=== PATIENT | female | born 1935 | race Caucasian/White ===

== ENCOUNTER → 2017-05-13 | Outpatient (CLI) | payer BC, MEDICARE ==
[2017-05-13 07:54] LABS: Calcium 9.5 mg/dL (8.4-10.2); Phosphorous 4.3 mg/dL (2.5-4.5); Potassium 4.4 mmol/L (3.5-5.1)
[2017-05-13 08:10] LABS: CH 34.3; CHCM 31.9; HCT 41.6 % (34.0-46.0); HDW 2.37; HGB 13.5 gm/dL (11.4-16.0); MCH 35.1 pg (25.0-35.0); MCHC 32.5 g/dL (31.0-37.0); Macrocytosis Moderate; Mean Platelet Volume 7.4; RBC 3.85 m/uL (3.80-5.40); RDW 13.9 % (11.5-15.5); WBC 5.5 k/uL (3.8-10.6)
[2017-05-13 08:22] LABS: Appearance,Urine Cloudy (Clear); Bacteria,Urine Rare /hpf; Bilirubin,Urine Negative (Negative); Glucose,Urine (UA) Negative (Negative); Ketones,Urine Negative (Negative); Leukocyte Esterase,Urine Large (Negative); Mucus,Urine Occasional /hpf; Nitrite,Urine Negative (Negative); Particle Count 33114; Protein,Urine Trace (Negative); Specific Gravity,Urine 1.015 (1.001-1.035); Squamous Epithelial Cell,Urine 5 /hpf (0-4); UA Billing (MACRO vs. MICRO) MICRO; Urobilinogen,Urine <2.0 mg/dL (<2.0); WBC,Urine >182 /hpf (0-5)
== END | disposition home or self-care (01) ==
LOC: LABWHC1 07:02
PROVIDERS: ATTEND Internal Medicine Nephrology
DX: N18.3 Chronic kidney disease, stage 3 (moderate) (principal)
CPT/HCPCS: 36415; 80048; 80069; 81001; 82306; 82570; 83970; 84156; 85027

== ENCOUNTER → 2017-12-15 | Outpatient (CLI) | payer MEDICARE ==
[2017-12-15 07:06] LABS: Basophils % (A) 0 %; Eosinophils # (A) 0.1 k/uL (0-0.7); Eosinophils % (A) 2 %; HCT 40.5 % (34.0-46.0); HGB 12.9 gm/dL (11.4-16.0); Hypochromasia Slight; Lymphocytes # (A) 1.1 k/uL (1.0-4.8); Lymphocytes % (A) 24 %; MCH 34.6 pg (25.0-35.0); MCV 108.3 fL (80.0-100.0); Macrocytosis Marked; Mean Platelet Volume 7.6; Monocytes # (A) 0.2 k/uL (0-1.0); Monocytes % (A) 4 %; Neutrophils # (A) 3.1 k/uL (1.3-7.7); Neutrophils % (A) 68 %; Platelet Count 222 k/uL (150-450); RBC 3.74 m/uL (3.80-5.40); RDW 13.6 % (11.5-15.5); WBC 4.6 k/uL (3.8-10.6)
[2017-12-15 07:44] LABS: Calcium 9.2 mg/dL (8.4-10.2); Potassium 4.6 mmol/L (3.5-5.1)
== END | disposition home or self-care (01) ==
LOC: LABWHC1 06:40
PROVIDERS: ATTEND Nurse Practitioner Family
DX: N18.3 Chronic kidney disease, stage 3 (moderate) (principal)
CPT/HCPCS: 36415; 80048; 85025

== ENCOUNTER → 2018-07-16 | Outpatient (CLI) | payer MEDICARE ==
[2018-07-16 08:18] LABS: Basophils % (A) 1 %; Eosinophils # (A) 0.1 k/uL (0-0.7); Eosinophils % (A) 3 %; HCT 40.4 % (34.0-46.0); HGB 13.1 gm/dL (11.4-16.0); Lymphocytes # (A) 0.8 k/uL (1.0-4.8); Lymphocytes % (A) 19 %; MCH 36.3 pg (25.0-35.0); MCHC 32.4 g/dL (31.0-37.0); MCV 112.2 fL (80.0-100.0); Macrocytosis Marked; Mean Platelet Volume 6.9; Monocytes # (A) 0.2 k/uL (0-1.0); Monocytes % (A) 6 %; Neutrophils # (A) 2.9 k/uL (1.3-7.7); Neutrophils % (A) 70 %; Platelet Count 199 k/uL (150-450); RDW 14.6 % (11.5-15.5); WBC 4.2 k/uL (3.8-10.6)
[2018-07-16 11:13] LABS: Vitamin D 25 Hydroxy 35.8 ng/mL (30.0-100.0)
[2018-07-16 11:16] LABS: Parathyroid Hormone Intact 56.3 pg/mL (14.0-72.0)
[2018-07-16 13:16] LABS: Anion Gap 5.7 mmol/L (4.00-12.00); Calcium 9.1 mg/dL (8.7-10.3); Carbon Dioxide 28.3 mmol/L (21.6-31.8); Magnesium 2.3 mg/dL (1.5-2.4); Phosphorus 3.8 mg/dL (2.4-5.1); Potassium 4.3 mmol/L (3.5-5.5)
== END | disposition home or self-care (01) ==
LOC: LABWHC1 07:19
PROVIDERS: ATTEND Nurse Practitioner Family
DX: N18.3 Chronic kidney disease, stage 3 (moderate) (principal); D63.1 Anemia in chronic kidney disease; E55.9 Vitamin D deficiency, unspecified
CPT/HCPCS: 36415; 80048; 82306; 83735; 83970; 84100; 85025

== ENCOUNTER → 2018-08-24 | Outpatient (CLI) | payer MEDICARE ==
--- NOTE | 2018-08-24 14:12 | US ---
EXAMINATION TYPE: US kidneys/renal and bladder DATE OF EXAM: 08/24/2018 COMPARISON: 03/21/2015 CLINICAL HISTORY: 83-year-old female N18.3 Chronic kidney disease stage 3. No pain TECHNIQUE: Multiple sonographic images of the kidneys and bladder are obtained. FINDINGS: EXAM MEASUREMENTS: Right Kidney: 8.3 x 3.6 x 3.6 cm Left Kidney: 8.9 x 3.5 x 4.0 cm No hydronephrosis on either side. Bladder: No gross abnormality of the distended bladder. Only the left jet is seen IMPRESSION: No hydronephrosis. Only the left ureteral jet is seen during the course of the exam.
== END ==
LOC: RADUSWWP 13:14
PROVIDERS: ATTEND Internal Medicine Nephrology
DX: N18.3 Chronic kidney disease, stage 3 (moderate) (principal)
CPT/HCPCS: 76770

== ENCOUNTER 2018-12-07 15:26 | Inpatient (IN) | payer MEDICARE ==
[2018-12-07 16:30] VITALS: BMI 25.5
[2018-12-07 16:58] LABS: Albumin 3.9 g/dL (3.5-5.0); Calcium 9.8 mg/dL (8.4-10.2); Potassium 4.1 mmol/L (3.5-5.1); Total Bilirubin 0.8 mg/dL (0.2-1.3); Total Protein 6.6 g/dL (6.3-8.2)
[2018-12-07 17:00] LABS: Basophils % (A) 1 %; Eosinophils # (A) 0.1 k/uL (0-0.7); Eosinophils % (A) 2 %; HCT 40.8 % (34.0-46.0); HGB 13.2 gm/dL (11.4-16.0); Lymphocytes # (A) 0.8 k/uL (1.0-4.8); Lymphocytes % (A) 14 %; MCH 37.5 pg (25.0-35.0); MCHC 32.4 g/dL (31.0-37.0); MCV 115.8 fL (80.0-100.0); Macrocytosis Marked; Mean Platelet Volume 7.4; Monocytes # (A) 0.4 k/uL (0-1.0); Monocytes % (A) 7 %; Neutrophils # (A) 4.1 k/uL (1.3-7.7); Neutrophils % (A) 74 %; Platelet Count 291 k/uL (150-450); RBC 3.52 m/uL (3.80-5.40); RDW 13.8 % (11.5-15.5); WBC 5.6 k/uL (3.8-10.6)
[2018-12-07] MEDS: SODIUM CHLORIDE 0.9% 1,000 ML IV SCH (17:08)
--- NOTE | 2018-12-07 17:36 | XR ---
EXAMINATION TYPE: XR chest 2V DATE OF EXAM: 12/07/2018 COMPARISON: Chest x-ray March 08, 2015 HISTORY: Dyspnea. TECHNIQUE: Frontal and lateral views of the chest are obtained. FINDINGS: There is chronic parenchymal change without suspicious focal air space opacity, pleural ef fusion, or pneumothorax seen. Lateral left basilar calcified nodule or granuloma is seen. The cardiac silhouette size remains within normal limits with atherosclerotic change in aortic knob. The osseo us structures remain demineralized. Overlying EKG leads are seen. IMPRESSION: No acute cardiopulmonary process. No significant change from prior.
[2018-12-07] MEDS ORDERED: RX INFO: IV CONTRAST WAS GIVEN 1 EACH MISC MISCELLANE PRN (20:02)
[2018-12-07] MEDS ORDERED: METOPROLOL TARTRATE 25 MG TAB PO SCH (21:00)
[2018-12-07] MEDS: HEPARIN SODIUM,PORCINE 5,000 UNIT/ML 1 ML VIAL SQ SCH (22:09)
--- NOTE | 2018-12-07 22:23 | CT ---
EXAMINATION TYPE: CT angio chest DATE OF EXAM: 12/07/2018 COMPARISON: NONE HISTORY: elevated d dimer. CT DLP: 298.2 mGycm. Automated Exposure Control for Dose Reduction was Utilized. CONTRAST: CTA scan of the thorax is performed with IV Contrast, patient injected with 80 mL of Isovue 370, pulm onary embolism protocol. MIP Images are created on CT scanner and reviewed. FINDINGS: LUNGS: There is mild chronic parenchymal change without suspicious focal consolidation or infiltrate. Some dependent atelectasis is seen in the lower lungs. No concerning parenchymal mass or nodule is i dentified bilaterally. There is no pleural effusion or pneumothorax seen bilaterally. The tracheob ronchial tree is patent. MEDIASTINUM: There is satisfactory enhancement of the pulmonary artery and its branches, there is no CT evidence for pulmonary embolism. There are no greater than 1 cm hilar or mediastinal lymph nodes. No cardiomegaly or pericardial effusion is seen. There is mild left ventricular dilatation felt pr esent. OTHER: Cholecystectomy clips are seen. Mild multilevel spurring in thoracic spine is present. Few sca ttered calcifications throughout the spleen are present products of old granulomatous disease. There is 1.5 cm splenule anterior splenic hilum axial image 127. Cortical thinning posteriorly right kidney mid pole level axial image 148 is noted. IMPRESSION: 1. No CT evidence for acute pulmonary embolism. 2. Mild chronic emphysematous change without suspicious acute pulmonary infiltrate.
[2018-12-08 00:12] VITALS: RESP 16
[2018-12-08 07:00] LABS: Basophils % (A) 0 %; Eosinophils # (A) 0.2 k/uL (0-0.7); Eosinophils % (A) 4 %; HCT 35.9 % (34.0-46.0); HGB 11.6 gm/dL (11.4-16.0); Lymphocytes # (A) 0.7 k/uL (1.0-4.8); Lymphocytes % (A) 20 %; MCH 37.6 pg (25.0-35.0); MCHC 32.3 g/dL (31.0-37.0); MCV 116.5 fL (80.0-100.0); Macrocytosis Marked; Mean Platelet Volume 7.5; Monocytes # (A) 0.3 k/uL (0-1.0); Monocytes % (A) 7 %; Neutrophils # (A) 2.4 k/uL (1.3-7.7); Neutrophils % (A) 65 %; Platelet Count 258 k/uL (150-450); RBC 3.08 m/uL (3.80-5.40); RDW 14.1 % (11.5-15.5); WBC 3.7 k/uL (3.8-10.6)
[2018-12-08 07:13] LABS: Albumin 3.1 g/dL (3.5-5.0); Calcium 8.9 mg/dL (8.4-10.2); Potassium 4.2 mmol/L (3.5-5.1); Total Bilirubin 0.7 mg/dL (0.2-1.3); Total Protein 5.5 g/dL (6.3-8.2)
[2018-12-08 07:57] VITALS: TEMP 97.1
[2018-12-08] MEDS: SODIUM CHLORIDE 0.9% 1,000 ML IV SCH (08:24)
[2018-12-08] MEDS: HEPARIN SODIUM,PORCINE 5,000 UNIT/ML 1 ML VIAL SQ SCH ×2 (08:36→15:55)
--- NOTE | 2018-12-08 09:04 | P.CRDCN ---
History of Present Illness History of present illness: This is Dr. Armas dictating a consult on this patient The patient was interviewed and examined by me IMPRESSION / ASSESSMENT: Impression presented with exertional shortness of breath on exertion, with activities of daily living Admitted with atrial fibrillation diagnosis. Waiting for the outpatient ECG to be faxed twelve-lead ECG is here shows sinus rhythm normal heart rates normal ECGs So far no evidence for myocardial injury PLAN: 2-D echo and Doppler study to assess cardiac structure and function given his symptoms of shortness of breath on exertion Watch on telemetry for any bradycardia arrhythmias Repeat troponin HPI Patient presented with tiredness fatigue and exhaustion and shortness of breath and exertion. This been going on for somewhat time did she is prescribed Levaquin about a week back for bronchitis. However this did not help her symptoms No dizziness no loss of consciousness no angina no chest discomfort just exhaustion and shortness of breath with activities of daily living Hemoglobin is normal electrolytes and normal renal function is close to normal range She does have a past history of kidney problems and is seeing nephrology for this She denies hypertension type 2 diabetes previous CA She does have macular degeneration and can't see well ROS: No fever chills or rigors, no cough, phlegm or expectoration, no nausea, vomiting or diarrhea, no hematuria, dysuria, no musculoskeletal complaints, no strokes or seizures, no skin lesions. EXAMINATION: On examination she is afebrile 97.2F pulse rate in the 80s blood pressure 126/71 mmHg Breath sounds are normal no rhonchi no crackles Heart sounds are normal no murmurs or gallops no rub Abdomen is soft nontender Extremities are warm no edema REVIEW OF LABS, ECG & MEDICAL DATA Labs are reviewed did know abnormalities noted. Renal function close to the normal range Normal TSH Normal troponin Past Medical History Past Medical History: Hypertension Additional Past Medical History / Comment(s): migraines History of Any Multi-Drug Resistant Organisms: None Reported Past Surgical History: Appendectomy, Bowel Resection, Cholecystectomy, Orthopedic Surgery Past Anesthesia/Blood Transfusion Reactions: No Reported Reaction Past Psychological History: No Psychological Hx Reported Smoking Status: Never smoker Past Alcohol Use History: None Reported Past Drug Use History: None Reported Medications and Allergies Home Medications Medication Instructions Recorded Confirmed Type Cholecalciferol [Vitamin D3] 1,000 unit PO DAILY 12/07/18 12/07/18 History Vit C/E/Zn/Coppr/Lutein/Zeaxan 1 cap PO BID 12/07/18 12/07/18 History [Preservision Areds 2 Softgel] Allergies Allergy/AdvReac Type Severity Reaction Status Date / Time codeine AdvReac Vomiting Verified 12/07/18 19:13 Physical Exam Vitals: Vital Signs Temp Pulse Resp BP Pulse Ox 12/08/18 07:54 97.1 F L 86 16 126/71 96 12/08/18 05:31 97.6 F 74 16 134/70 94 L 12/07/18 23:30 98.1 F 78 16 143/78 95 12/07/18 20:07 97.8 F 90 18 136/75 98 12/07/18 17:10 97.2 F L 104 H 16 113/65 97 Intake and Output 12/07/18 12/08/18 12/08/18 22:59 06:59 14:59 Intake Total 180 315 Balance 180 315 Intake: Intake, IV Titration 75 Amount Sodium Chloride 0.9% 1, 75 000 ml @ 75 mls/hr IV . [id number] [facility] Rx#:[id number] Oral 180 240 Other: # Voids 2 Weight 61.4 kg 60.3 kg Results 12/08/18 06:05 12/08/18 06:05 Cardiac Enzymes 12/07/18 12/07/18 12/08/18 Range/Units 16:21 16:31 06:05 AST 18 15 (14-36) U/L Troponin I <0.012 (0.000-0.034) ng/mL CBC 12/07/18 12/08/18 Range/Units 16:31 06:05 WBC 5.6 3.7 L (3.8-10.6) k/uL RBC 3.52 L 3.08 L (3.80-5.40) m/uL Hgb 13.2 11.6 (11.4-16.0) gm/dL Hct 40.8 35.9 (34.0-46.0) % Plt Count 291 258 (150-450) k/uL Comprehensive Metabolic Panel 12/07/18 12/08/18 Range/Units 16:31 06:05 Sodium 136 L 137 (137-145) mmol/L Potassium 4.1 4.2 (3.5-5.1) mmol/L Chloride 99 105 (98-107) mmol/L Carbon Dioxide 25 26 (22-30) mmol/L BUN 17 14 (7-17) mg/dL Creatinine 1.11 H 0.96 (0.52-1.04) mg/dL Glucose 93 81 (74-99) mg/dL Calcium 9.8 8.9 (8.4-10.2) mg/dL AST 18 15 (14-36) U/L ALT 21 23 (9-52) U/L Alkaline Phosphatase 81 64 (38-126) U/L Total Protein 6.6 5.5 L (6.3-8.2) g/dL Albumin 3.9 3.1 L (3.5-5.0) g/dL Current Medications Generic Name Dose Route Start Last Admin Trade Name Freq PRN Reason Stop Dose Admin Heparin Sodium (Porcine) 5,000 unit 12/08/18 00:00 12/08/18 08:36 Heparin SQ 5,000 unit Q8HR ORIANA Administration Miscellaneous Information 1 each 12/07/18 20:02 Rx Info: Iv Contrast Was Given MISCELLANE 12/09/18 20:03 DAILY PRN Per Protocol Intake and Output 12/07/18 12/08/18 12/08/18 22:59 06:59 14:59 Intake Total 180 315 Balance 180 315 Intake: Intake, IV Titration 75 Amount Sodium Chloride 0.9% 1, 75 000 ml @ 75 mls/hr IV . [id number] [facility] Rx#:[id number] Oral 180 240 Other: # Voids 2 Weight 61.4 kg 60.3 kg 12/08/18 06:05 12/08/18 06:05
[2018-12-08 12:31] VITALS: BP 141/65; PULSE 76
--- NOTE | 2018-12-08 13:01 | ECHOF ---
Referral Reason:atrial fibrilation MEASUREMENTS -------- HEIGHT: 154.9 cm WEIGHT: 59.9 kg BP: RVIDd: 2.5 cm (< 3.3) IVSd: 1.2 cm (0.6 - 1.1) LVIDd: 3.6 cm (3.9 - 5.3) LVPWd: 1.3 cm (0.6 - 1.1) IVSs: 1.4 cm LVIDs: 2.5 cm LVPWs: 1.7 cm LAESV Index (A-L): 19.53 ml/m Ao Diam: 3.1 cm (2.0 - 3.7) AV Cusp: 1.9 cm (1.5 - 2.6) LA Diam: 2.5 cm (2.7 - 3.8) MV EXCURSION: 13.189 mm (> 18.000) MV EF SLOPE: 50 mm/s (70 - 150) EPSS: 0.7 cm MV E Huy: 1.03 m/s MV DecT: 114 ms MV A Huy: 1.23 m/s MV E/A Ratio: 0.84 AR PHT: 295 ms RAP: 5.00 mmHg RVSP: 31.73 mmHg FINDINGS -------- Atrial fibrillation. This was a technically good study. The left ventricular size is normal. There is mild concentric left ventricular hypertrophy. Overa ll left ventricular systolic function is normal with, an EF between 55 - 60 %. The right ventricle is normal in size. Normal LA size by volume 22+/-6 ml/m2. The right atrial size is normal. Aortic valve is trileaflet and is mildly thickened. There is oxjbamho-kg-zahrqr aortic regurgitatio n. The mitral valve leaflets are mildly thickened. Mild mitral annular calcification present. Severe mitral regurgitation is present. Mild tricuspid regurgitation present. The right ventricular systolic pressure, as measured by Doppl er, is 31.73mmHg. Pulmonic valve appears structurally normal. The aortic root size is normal. Normal inferior vena cava with normal inspiratory collapse consistent with estimated right atrial pre ssure of 5 mmHg. There is no pericardial effusion. CONCLUSIONS -------- 1. Atrial fibrillation. 2. This was a technically good study. 3. The left ventricular size is normal. 4. There is mild concentric left ventricular hypertrophy. 5. Overall left ventricular systolic function is normal with, an EF between 55 - 60 %. 6. The right ventricle is normal in size. 7. Normal LA size by volume 22+/-6 ml/m2. 8. The right atrial size is normal. 9. Aortic valve is trileaflet and is mildly thickened. 10. There is mbiioryj-si-mwhpht aortic regurgitation. 11. The mitral valve leaflets are mildly thickened. 12. Mild mitral annular calcification present. 13. Severe mitral regurgitation is present. 14. Mild tricuspid regurgitation present. 15. The right ventricular systolic pressure, as measured by Doppler, is 31.73mmHg. 16. Pulmonic valve appears structurally normal. 17. The aortic root size is normal. 18. Normal inferior vena cava with normal inspiratory collapse consistent with estimated right atrial pressure of 5 mmHg. 19. There is no pericardial effusion. MACARONI PRESS OPERATOR: Helena Weeks RDCS
--- NOTE | 2018-12-08 17:28 | HP ---
HISTORY AND PHYSICAL CHIEF COMPLAINT: 83-year-old white female admitted to the hospital with acute onset atrial fibrillation with dyspnea, with exertion, lightheadedness and dizziness with minimal exertion. She was admitted today. Echocardiogram showed atrial fibrillation, although she was intermittent. She was in sinus rhythm for a lot of times on the monitor. She also was found to have moderate to severe aortic regurgitation, which could be contributing to her lightheadedness and dizziness. She has some tachycardia in the high 90s where Atenolol 25 b.i.d. is being ordered. She has paroxysmal atrial fibrillation, rapid ventricular response and moderate to severe aortic regurgitation. REVIEW OF SYMPTOMS: 14-point review of systems negative except for mentioned in HPI. HOME MEDICATIONS: Reviewed. ALLERGIES: TO CODEINE. PHYSICAL EXAM: Temperature 97 to 98, blood pressure 130s to 140 over 70s to 80s, pulse is 70s to 90s. Respiratory 16 to 18, O2 94-98 on room air. Cardiovascular S1, S2. Tachycardic, currently in sinus rhythm. Lungs are clear. GI soft. Hematology: Negative Homans. Psych: Fair mood and affect. ASSESSMENT: Paroxysmal atrial fibrillation, moderate to severe aortic regurgitation contributing to symptoms of tachycardia. Beta nita will be ordered 25 b.i.d. A copy of the echocardiogram was given to the patient. She will follow up as an outpatient with possible BRAULIO. MMODL / IJN: [id number] /
== END 2018-12-08 17:39 | disposition home or self-care (01) | DRG 310 ==
LOC: 3SCARD 16:07
PROVIDERS: ADMIT Family Medicine; ATTEND Family Medicine
DX: I48.0 Paroxysmal atrial fibrillation (principal); I35.1 Nonrheumatic aortic (valve) insufficiency; I10 Essential (primary) hypertension; Z90.49 Acquired absence of other specified parts of digestive tract; Z88.5 Allergy status to narcotic agent
CPT/HCPCS: 71046; 71275; 80053; 84443; 84484; 85025; 85379; 93306

== ENCOUNTER → 2019-03-04 | Outpatient (CLI) | payer MEDICARE ==
[2019-03-04 07:58] LABS: Basophils % (A) 1 %; Eosinophils # (A) 0.2 k/uL (0-0.7); Eosinophils % (A) 4 %; HCT 37.4 % (34.0-46.0); HGB 11.6 gm/dL (11.4-16.0); Lymphocytes # (A) 0.9 k/uL (1.0-4.8); Lymphocytes % (A) 23 %; MCH 34.6 pg (25.0-35.0); MCHC 31.1 g/dL (31.0-37.0); MCV 111.4 fL (80.0-100.0); Macrocytosis Marked; Mean Platelet Volume 7.5; Monocytes # (A) 0.3 k/uL (0-1.0); Monocytes % (A) 8 %; Neutrophils # (A) 2.5 k/uL (1.3-7.7); Neutrophils % (A) 62 %; Platelet Count 221 k/uL (150-450); RBC 3.36 m/uL (3.80-5.40); RDW 14.5 % (11.5-15.5)
[2019-03-04 08:00] LABS: Appearance,Urine Cloudy (Clear); Bacteria,Urine Few /hpf; Bilirubin,Urine Negative (Negative); Blood,Urine Negative (Negative); Color,Urine Yellow; Glucose,Urine (UA) Negative (Negative); Ketones,Urine Negative (Negative); Leukocyte Esterase,Urine Large (Negative); Mucus,Urine Rare /hpf; Nitrite,Urine Negative (Negative); Protein,Urine Negative (Negative); RBC,Urine 1 /hpf (0-5); Specific Gravity,Urine 1.009 (1.001-1.035); Urobilinogen,Urine <2.0 mg/dL (<2.0); WBC,Urine 89 /hpf (0-5)
[2019-03-04 09:02] LABS: Polychromasia Present
[2019-03-04 11:54] LABS: Iron Saturation 15.41 (12.00-45.00)
[2019-03-04 12:03] LABS: Vitamin D 25 Hydroxy 46.9 ng/mL (30.0-100.0)
[2019-03-04 14:18] LABS: African American GFR (CKD) 48.4 (60.0-200.0); Albumin 3.9 g/dL (3.80-4.90); Anion Gap 6.2 mmol/L (4.00-12.00); BUN/Creat Ratio 10.83 Ratio (12.00-20.00); Calcium 9.1 mg/dL (8.7-10.3); Carbon Dioxide 28.8 mmol/L (21.6-31.8); Potassium 4.3 mmol/L (3.5-5.5)
[2019-03-04 14:38] LABS: Magnesium 2.2 mg/dL (1.5-2.4); Phosphorus 4.1 mg/dL (2.4-5.1)
[2019-03-04 18:07] LABS: Creatinine,Urine Random 65.2 mg/dL
== END | disposition home or self-care (01) ==
LOC: LABWHC1 06:57
PROVIDERS: ATTEND Internal Medicine Nephrology
DX: N18.3 Chronic kidney disease, stage 3 (moderate) (principal); D63.1 Anemia in chronic kidney disease; R80.9 Proteinuria, unspecified; M10.9 Gout, unspecified; N39.0 Urinary tract infection, site not specified; E55.9 Vitamin D deficiency, unspecified
CPT/HCPCS: 36415; 80048; 81001; 82040; 82306; 82570; 82728; 83540; 83550; 83735; 83970; 84100; 84156; 84550; 85025

== ENCOUNTER → 2019-03-12 | Outpatient (CLI) | payer MEDICARE ==
--- NOTE | 2019-03-12 14:28 | ECHOF ---
Referral Reason:R94.31 abnormal EKG MEASUREMENTS -------- HEIGHT: 157.5 cm WEIGHT: 61.7 kg BP: 175/74 IVSd: 1.0 cm (0.6 - 1.1) LVIDd: 4.6 cm (3.9 - 5.3) LVPWd: 1.0 cm (0.6 - 1.1) IVSs: 1.5 cm LVIDs: 2.9 cm LVPWs: 1.3 cm RVIDd: 3.5 cm (< 3.3) LAESV Index (A-L): 23.41 ml/m Ao Diam: 2.9 cm (2.0 - 3.7) LA Diam: 3.2 cm (2.7 - 3.8) AV Cusp: 1.6 cm (1.5 - 2.6) EPSS: 0.9 cm MV E Huy: 0.98 m/s MV DecT: 178 ms MV A Huy: 0.88 m/s MV E/A Ratio: 1.11 AR PHT: 512 ms RAP: 5.00 mmHg RVSP: 29.49 mmHg MV EF SLOPE: 75.23 mm/s (70 - 150) MV EXCURSION: 11.11 mm (> 18.000) FINDINGS -------- Sinus rhythm. This was a technically good study. The left ventricular size is normal. Left ventricular wall thickness is normal. There is normal g lobal left ventricular contractility. Overall left ventricular systolic function is normal with, an EF between 60 - 65 %. The right ventricle is normal in size. Normal LA size by volume 22+/-6 ml/m2. The right atrial size is normal. Interatrial and interventricular septum intact. The aortic valve is trileaflet and appears structurally normal. There is zzmvhvta-xz-uqlwdw aortic regurgitation. There is no evidence of aortic stenosis. The mitral valve is normal. Mild mitral annular calcification present. Moderate mitral regurgitat ion is present. Mild tricuspid regurgitation present. There is no evidence of pulmonary hypertension. The right v entricular systolic pressure, as measured by Doppler, is 29.49mmHg. There is no pulmonic regurgitation present. The aortic root size is normal. Normal inferior vena cava with normal inspiratory collapse consistent with estimated right atrial pre ssure of 5 mmHg. There is no pericardial effusion. CONCLUSIONS -------- 1. Sinus rhythm. 2. This was a technically good study. 3. The left ventricular size is normal. 4. Left ventricular wall thickness is normal. 5. There is normal global left ventricular contractility. 6. Overall left ventricular systolic function is normal with, an EF between 60 - 65 %. 7. The right ventricle is normal in size. 8. Normal LA size by volume 22+/-6 ml/m2. 9. The right atrial size is normal. 10. Interatrial and interventricular septum intact. 11. The aortic valve is trileaflet and appears structurally normal. 12. There is lqgvcqju-kg-woawdw aortic regurgitation. 13. There is no evidence of aortic stenosis. 14. The mitral valve is normal. 15. Mild mitral annular calcification present. 16. Moderate mitral regurgitation is present. 17. There is no evidence of pulmonary hypertension. 18. The right ventricular systolic pressure, as measured by Doppler, is 29.49mmHg. 19. There is no pulmonic regurgitation present. 20. The aortic root size is normal. 21. Normal inferior vena cava with normal inspiratory collapse consistent with estimated right atrial pressure of 5 mmHg. 22. There is no pericardial effusion. MASH TUB COOKER: Vandana Mahajan RDCS
== END | disposition home or self-care (01) ==
LOC: RADECHMAIN 11:26
PROVIDERS: ATTEND Family Medicine
DX: I08.0 Rheumatic disorders of both mitral and aortic valves (principal)
CPT/HCPCS: 93306

== ENCOUNTER → 2019-07-27 | Outpatient (CLI) | payer MEDICARE ==
[2019-07-27 08:46] LABS: Basophils % (A) 0 %; Eosinophils # (A) 0.1 k/uL (0-0.7); Eosinophils % (A) 1 %; HCT 37.5 % (34.0-46.0); HGB 12.1 gm/dL (11.4-16.0); Lymphocytes # (A) 0.3 k/uL (1.0-4.8); Lymphocytes % (A) 7 %; MCH 32.5 pg (25.0-35.0); MCHC 32.2 g/dL (31.0-37.0); MCV 100.9 fL (80.0-100.0); Mean Platelet Volume 6.8; Monocytes # (A) 0.3 k/uL (0-1.0); Monocytes % (A) 7 %; Neutrophils # (A) 3.7 k/uL (1.3-7.7); Neutrophils % (A) 83 %; Platelet Count 204 k/uL (150-450); RBC 3.72 m/uL (3.80-5.40); WBC 4.5 k/uL (3.8-10.6)
[2019-07-27 15:48] LABS: African American GFR (CKD) 53.4 (60.0-200.0); Albumin 3.9 g/dL (3.80-4.90); Albumin/Globulin Ratio 2.44 (1.60-3.17); Anion Gap 8.2 mmol/L (4.00-12.00); BUN/Creat Ratio 14.55 Ratio (12.00-20.00); Calcium 8.7 mg/dL (8.7-10.3); Carbon Dioxide 26.8 mmol/L (21.6-31.8); Globulin 1.6 g/dL (1.6-3.3); Non-African American GFR(CKD) 46.1 (60.0-200.0); Potassium 4.3 mmol/L (3.5-5.5); Total Bilirubin 0.7 mg/dL (0.3-1.2); Total Protein 5.5 g/dL (6.2-8.2)
[2019-07-27 15:57] LABS: T4, Free (Free Thyroxine) 1.2 ng/dL (0.80-1.80)
[2019-07-27 16:38] LABS: Hemoglobin A1C 4.6 % (4.0-6.0)
== END | disposition home or self-care (01) ==
LOC: LABWHC1 07:31
PROVIDERS: ATTEND Family Medicine
DX: I11.0 Hypertensive heart disease with heart failure (principal); I50.9 Heart failure, unspecified
CPT/HCPCS: 36415; 80053; 82306; 83036; 83540; 83880; 84439; 84443; 85025

== ENCOUNTER → 2019-09-30 | Outpatient (CLI) | payer MEDICARE ==
[2019-09-30 08:04] LABS: Appearance,Urine Cloudy (Clear); Bacteria,Urine Few /hpf; Bilirubin,Urine Negative (Negative); Blood,Urine Negative (Negative); Color,Urine Yellow; Glucose,Urine (UA) Negative (Negative); Ketones,Urine Negative (Negative); Leukocyte Esterase,Urine Large (Negative); Nitrite,Urine Negative (Negative); PH, Urine 6.5 (5.0-8.0); Protein,Urine Negative (Negative); Specific Gravity,Urine 1.008 (1.001-1.035); Squamous Epithelial Cell,Urine 4 /hpf (0-4); Urobilinogen,Urine <2.0 mg/dL (<2.0); WBC,Urine 64 /hpf (0-5)
[2019-09-30 08:12] LABS: Basophils % (A) 1 %; Eosinophils % (A) 1 %; HCT 36.8 % (34.0-46.0); HGB 11.8 gm/dL (11.4-16.0); Lymphocytes # (A) 0.3 k/uL (1.0-4.8); Lymphocytes % (A) 10 %; MCH 32.5 pg (25.0-35.0); MCV 101.6 fL (80.0-100.0); Mean Platelet Volume 7.8; Monocytes # (A) 0.2 k/uL (0-1.0); Monocytes % (A) 8 %; Neutrophils % (A) 77 %; Platelet Count 203 k/uL (150-450); RBC 3.63 m/uL (3.80-5.40); RDW 12.2 % (11.5-15.5); WBC 2.5 k/uL (3.8-10.6)
[2019-09-30 09:38] LABS: Protein/Creatinine Ratio,Urine 0.3
[2019-09-30 13:21] LABS: % Iron Saturation 28.69 (12.00-45.00); African American GFR (CKD) 53.4 (60.0-200.0); Albumin 3.9 g/dL (3.80-4.90); BUN/Creat Ratio 14.55 Ratio (12.00-20.00); Magnesium 2.6 mg/dL (1.5-2.4); Non-African American GFR(CKD) 46.1 (60.0-200.0); Phosphorus 4.2 mg/dL (2.4-5.1); Potassium 4.2 mmol/L (3.5-5.5); Uric Acid 3.5 mg/dL (2.9-7.7)
[2019-09-30 13:29] LABS: Ferritin 108.3 ng/mL (10.0-291.0)
== END | disposition home or self-care (01) ==
LOC: LABWHC1 07:16
PROVIDERS: ATTEND Internal Medicine Nephrology
DX: E55.9 Vitamin D deficiency, unspecified (principal); M10.9 Gout, unspecified; D63.1 Anemia in chronic kidney disease; N18.3 Chronic kidney disease, stage 3 (moderate)
CPT/HCPCS: 36415; 80048; 81001; 82040; 82306; 82570; 82728; 83540; 83550; 83735; 83970; 84100; 84156; 84550; 85025

== ENCOUNTER 2020-02-07 14:47 | Emergency (ER) | payer MEDICARE ==
[2020-02-07 15:09] VITALS: RESP 18
[2020-02-07 15:52] LABS: Basophils % (A) 1 %; Eosinophils # (A) 0.1 k/uL (0-0.7); Eosinophils % (A) 1 %; HCT 36.9 % (34.0-46.0); HGB 11.8 gm/dL (11.4-16.0); Lymphocytes # (A) 0.3 k/uL (1.0-4.8); Lymphocytes % (A) 7 %; MCH 31.8 pg (25.0-35.0); MCHC 31.9 g/dL (31.0-37.0); MCV 99.8 fL (80.0-100.0); Mean Platelet Volume 7.5; Monocytes # (A) 0.3 k/uL (0-1.0); Monocytes % (A) 7 %; Neutrophils # (A) 3.4 k/uL (1.3-7.7); Neutrophils % (A) 81 %; Platelet Count 226 k/uL (150-450); RDW 12.5 % (11.5-15.5); WBC 4.2 k/uL (3.8-10.6)
[2020-02-07 16:13] LABS: Albumin 4.1 g/dL (3.5-5.0); Calcium 9.3 mg/dL (8.4-10.2); Potassium 4.2 mmol/L (3.5-5.1); Total Bilirubin 0.9 mg/dL (0.2-1.3); Total Protein 6.6 g/dL (6.3-8.2)
[2020-02-07 16:18] LABS: Partial Thromboplastin Time 25.2 sec (22.0-30.0); Prothrombin Time 10.1 sec (9.0-12.0)
--- NOTE | 2020-02-07 16:37 | CT ---
EXAMINATION TYPE: CT brain cspine wo con DATE OF EXAM: 02/07/2020 COMPARISON: CT brain June 22, 2015. HISTORY: Fall with posterior head pain and neck pain. CT DLP: 1204.1 mGycm. Automated Exposure Control for Dose Reduction was Utilized. TECHNIQUE: CT scan of the head and cervical spine are performed without contrast. FINDINGS: There is no acute intracranial hemorrhage or midline shift identified. Persistent ventric ular sulcal prominence. Persistent areas of low-attenuation in the deep and periventricular white mat ter. Scleral calcification right globe is present. Visualized paranasal sinuses are clear. The calvar ium is intact. Cervical spine is visualized in its entirety from C1 through upper thoracic levels and demonstrates s traightened alignment without evidence of acute fracture or dislocation. There is slight grade 1 ante rolisthesis C2 on C3 with more prominent grade 1 anterolisthesis C4 on C5 and retrolisthesis C5 on C6 . Prevertebral soft tissue appears within normal limits. The C1-C2 articulation is within normal lima its on the coronal images. Moderate disc space narrowing and anterior spurring C5-C6 level. Posterio r spur disc complex effacing the anterior thecal sac at this level. Review of axial images shows mult ilevel uncovertebral facet degenerative changes contributing to multilevel bilateral neural foraminal narrowing. Thyroid gland is within normal limits. Lung apices show no pneumothorax. IMPRESSION: 1. There is no acute fracture or dislocation evident in the cervical spine. 2. No acute intracranial hemorrhage or midline shift is seen.
--- NOTE | 2020-02-07 16:48 | XR ---
EXAMINATION TYPE: XR shoulder complete RT DATE OF EXAM: 02/07/2020 CLINICAL HISTORY: Pain after fall injury. TECHNIQUE: Three views of the right shoulder are obtained. COMPARISON: None. FINDINGS: Demineralization is present. There is no acute fracture/dislocation evident in the right sh oulder. Mild to moderate narrowing and mild spurring acromioclavicular joint. Some prominence at the surgical neck minimal atelectatic product of old healed fracture. The visualized ribs are intact and unremarkable. IMPRESSION: There is no acute fracture or dislocation in right shoulder.
--- NOTE | 2020-02-07 16:49 | XR ---
EXAMINATION TYPE: XR chest 2V DATE OF EXAM: 02/07/2020 COMPARISON: Chest x-ray CTA chest from December 07, 2018 HISTORY: Fall injury with chest pain TECHNIQUE: Frontal and lateral views of the chest are obtained. FINDINGS: There is and chronic parenchymal changes bilaterally without suspicious new focal air spac e opacity, pleural effusion, or pneumothorax seen. The cardiac silhouette size remains within normal limits with atherosclerotic change aortic knob. The osseous structures are intact. Cholecystectomy clips are redemonstrated. IMPRESSION: Chronic changes without acute pulmonary process.
--- NOTE | 2020-02-07 17:32 | ED ---
Fall HPI <RanjithLake - Last Filed: 02/07/20 17:42> - General Source: patient, EMS Mode of arrival: EMS <Dave Marshall - Last Filed: 02/07/20 17:50> - General Chief Complaint: Fall Stated Complaint: smycope/head lac Time Seen by Provider: 02/07/20 15:37 - History of Present Illness Initial Comments: Patient states she is an 84-year-old female presenting to emergency Department with a chief complaint of a fall. Patient reports she was on her deck when she stood up and was going to the house to nut picker the phone. Patient reports she said muscle lightheaded and fell on the ground. States when she woke up, she knows her was attempting to pick her up. Patient also reports a headache in the parietal region. With some bleeding from region. Patient denies any light headedness, dizziness, nausea vomiting. She does report tenderness along the anterior aspect of the right shoulder but does have full range of motion. Patient denies any other discomfort. Patient is not on blood thinners. Denies any visual changes, shortness of breath, chest pain. (Dave Marshall) - Related Data Home Medications Medication Instructions Recorded Confirmed Cholecalciferol [Vitamin D3] 1,000 unit PO DAILY 12/07/18 12/07/18 Vit C/E/Zn/Coppr/Lutein/Zeaxan 1 cap PO BID 12/07/18 12/07/18 [Preservision Areds 2 Softgel] Previous Rx's Medication Instructions Recorded Aspirin 81 mg PO DAILY #30 chewable 12/08/18 Atenolol 25 mg PO Q12HR #60 tablet 12/08/18 Allergies Allergy/AdvReac Type Severity Reaction Status Date / Time codeine AdvReac Vomiting Verified 02/07/20 15:09 Review of Systems ROS Other: All systems not noted in ROS Statement are negative. <[place] - Last Filed: 02/07/20 17:42> ROS Other: All systems not noted in ROS Statement are negative. <Dave Marshall - Last Filed: 02/07/20 17:50> ROS Statement: Those systems with pertinent positive or pertinent negative responses have been documented in the HPI. Past Medical History Past Medical History: Atrial Fibrillation, Hypertension Additional Past Medical History / Comment(s): migraines, "leaking heart valves." History of Any Multi-Drug Resistant Organisms: None Reported Past Surgical History: Appendectomy, Bowel Resection, Cholecystectomy, Orthopedic Surgery Past Anesthesia/Blood Transfusion Reactions: No Reported Reaction Past Psychological History: No Psychological Hx Reported Smoking Status: Never smoker Past Alcohol Use History: None Reported, Rare Past Drug Use History: None Reported <Dave Marshall - Last Filed: 02/07/20 17:50> General Exam Limitations: no limitations General appearance: alert, in no apparent distress Head exam: Present: normocephalic, normal inspection. Absent: atraumatic (Laceration measuring approximately 1.5 cm in the parietal region. not active bleeding at this time.), other (Negative Stacy sign, negative hemotympanum, negative raccoon eyes.) Eye exam: Present: normal appearance, PERRL, EOMI ENT exam: Present: normal exam, normal oropharynx, mucous membranes moist Neck exam: Present: normal inspection, full ROM Respiratory exam: Present: normal lung sounds bilaterally Cardiovascular Exam: Present: regular rate, normal rhythm, normal heart sounds Extremities exam: Present: normal inspection, full ROM, tenderness (Tenderness along the anterior aspect of her right shoulder.), normal capillary refill, other (+2 ulnar and radial pulses bilaterally. +2 dorsalis pedis and posterior tibialis bilaterally.) Back exam: Present: normal inspection, full ROM. Absent: tenderness Neurological exam: Present: alert, oriented X3 Psychiatric exam: Present: normal affect, normal mood Skin exam: Present: warm, dry, intact, normal color <Dave Marshall - Last Filed: 02/07/20 17:50> Course <[place] - Last Filed: 02/07/20 17:42> Vital Signs 02/07/20 02/07/20 14:59 17:41 Temperature 96.8 F L 97.3 F L Pulse Rate 93 78 Respiratory 18 18 Rate Blood Pressure 159/72 145/68 O2 Sat by Pulse 98 98 Oximetry - Reevaluation(s) Reevaluation #1: 02/07/20 17:42 PA supervision: I did personally evaluate this patient case. He presented after a brief syncopal episode after getting up too fast she states. She did fall the floor CAT scans negative he did have ugo in the scalp laceration. She remains awake alert oriented 3 with a Krishna Coma Scale of 15 she'll be discharged the family is in agreement. Return parameters explained. ([place] Kasper) Medical Decision Making - Lab Data Result diagrams: 02/07/20 15:34 02/07/20 15:34 <[place] - Last Filed: 02/07/20 17:42> - Lab Data Result diagrams: 02/07/20 15:34 02/07/20 15:34 <Dave Marshall - Last Filed: 02/07/20 17:50> - Medical Decision Making Patient is 84-year-old female presenting to emergency Department with a chief complaint of a fall. It appears the patient got up too quick after sitting down for prolonged periods of time and had a possible loss of consciousness. According to her , the patient drinks large amounts of coffee daily. CBC does indicate signs of dehydration with elevated BUN and creatinine. On exam she did have a 1.57 with a laceration on the parietal aspect of the scalp. Patient had a CT of the brain and C-spine which was negative. Laceration was repaired with 3 ugo. Patient vised to return in 14 days for staple removal. EKG shows sinus rhythm with PAC. Patient advised to take her time when going from a laying, to sitting, to standing position. Dr. Kasper also examined the patient and is in agreement with the treatment plan. Family feels confident with the discharge and they are in agreement with the treatment plan. Return parameters total discussed, family is understanding and agreeable. Case discussed with physician (Dave Marshall) - Lab Data Lab Results 02/07/20 02/07/20 02/07/20 Range/Units 15:34 15:34 15:34 WBC 4.2 (3.8-10.6) k/uL RBC 3.70 L (3.80-5.40) m/uL Hgb 11.8 (11.4-16.0) gm/dL Hct 36.9 (34.0-46.0) % MCV 99.8 (80.0-100.0) fL MCH 31.8 (25.0-35.0) pg MCHC 31.9 (31.0-37.0) g/dL RDW 12.5 (11.5-15.5) % Plt Count 226 (150-450) k/uL Neutrophils % 81 % Lymphocytes % 7 % Monocytes % 7 % Eosinophils % 1 % Basophils % 1 % Neutrophils # 3.4 (1.3-7.7) k/uL Lymphocytes # 0.3 L (1.0-4.8) k/uL Monocytes # 0.3 (0-1.0) k/uL Eosinophils # 0.1 (0-0.7) k/uL Basophils # 0.0 (0-0.2) k/uL PT 10.1 (9.0-12.0) sec INR 1.0 (<1.2) APTT 25.2 (22.0-30.0) sec Sodium 128 L (137-145) mmol/L Potassium 4.2 (3.5-5.1) mmol/L Chloride 96 L (98-107) mmol/L Carbon Dioxide 21 L (22-30) mmol/L Anion Gap 11 mmol/L BUN 20 H (7-17) mg/dL Creatinine 1.13 H (0.52-1.04) mg/dL Est GFR (CKD-EPI)AfAm 52 (>60 ml/min/1.73 sqM) Est GFR (CKD-EPI)NonAf 45 (>60 ml/min/1.73 sqM) Glucose 88 (74-99) mg/dL Calcium 9.3 (8.4-10.2) mg/dL Total Bilirubin 0.9 (0.2-1.3) mg/dL AST 20 (14-36) U/L ALT 10 (4-34) U/L Alkaline Phosphatase 93 (38-126) U/L Troponin I (0.000-0.034) ng/mL Total Protein 6.6 (6.3-8.2) g/dL Albumin 4.1 (3.5-5.0) g/dL 02/07/20 Range/Units 15:34 WBC (3.8-10.6) k/uL RBC (3.80-5.40) m/uL Hgb (11.4-16.0) gm/dL Hct (34.0-46.0) % MCV (80.0-100.0) fL MCH (25.0-35.0) pg MCHC (31.0-37.0) g/dL RDW (11.5-15.5) % Plt Count (150-450) k/uL Neutrophils % % Lymphocytes % % Monocytes % % Eosinophils % % Basophils % % Neutrophils # (1.3-7.7) k/uL Lymphocytes # (1.0-4.8) k/uL Monocytes # (0-1.0) k/uL Eosinophils # (0-0.7) k/uL Basophils # (0-0.2) k/uL PT (9.0-12.0) sec INR (<1.2) APTT (22.0-30.0) sec Sodium (137-145) mmol/L Potassium (3.5-5.1) mmol/L Chloride (98-107) mmol/L Carbon Dioxide (22-30) mmol/L Anion Gap mmol/L BUN (7-17) mg/dL Creatinine (0.52-1.04) mg/dL Est GFR (CKD-EPI)AfAm (>60 ml/min/1.73 sqM) Est GFR (CKD-EPI)NonAf (>60 ml/min/1.73 sqM) Glucose (74-99) mg/dL Calcium (8.4-10.2) mg/dL Total Bilirubin (0.2-1.3) mg/dL AST (14-36) U/L ALT (4-34) U/L Alkaline Phosphatase (38-126) U/L Troponin I <0.012 (0.000-0.034) ng/mL Total Protein (6.3-8.2) g/dL Albumin (3.5-5.0) g/dL Disposition <[place] - Last Filed: 02/07/20 17:42> Is patient prescribed a controlled substance at d/c from ED?: No Time of Disposition: 17:50 <Dave Marshall - Last Filed: 02/07/20 17:50> Clinical Impression: Fall, Laceration, Head injury Disposition: HOME SELF-CARE Condition: Good Instructions (If sedation given, give patient instructions): Fall Prevention (ED), Laceration (DC), Staple Care (ED) Additional Instructions: Return to emergency department in 10-14 days for staple removal. Follow with primary care. Return to emergency department if symptoms worsen. Referrals: Shawn England MD [Primary Care Provider] - 1-2 days
[2020-02-07 17:43] VITALS: TEMP 97.3
[2020-02-07 17:53] LABS: Appearance,Urine Clear (Clear); Bacteria,Urine Moderate /hpf; Bilirubin,Urine Negative (Negative); Blood,Urine Negative (Negative); Color,Urine Yellow; Glucose,Urine (UA) Negative (Negative); Ketones,Urine 1+ (Negative); Leukocyte Esterase,Urine Small (Negative); Nitrite,Urine Negative (Negative); Protein,Urine Negative (Negative); RBC,Urine 1 /hpf (0-5); Specific Gravity,Urine 1.004 (1.001-1.035); Urobilinogen,Urine <2.0 mg/dL (<2.0); WBC,Urine 10 /hpf (0-5)
[2020-02-07 18:37] VITALS: BP 148/67; PULSE 64
== END 2020-02-07 19:01 | disposition home or self-care (01) ==
LOC: EC 14:47
DX: S01.01XA Laceration without foreign body of scalp, initial encounter (principal); E86.0 Dehydration; R79.89 Other specified abnormal findings of blood chemistry; Z88.5 Allergy status to narcotic agent; R55 Syncope and collapse; W18.39XA Other fall on same level, initial encounter; Y93.89 Activity, other specified
CPT/HCPCS: 12001; 36415; 70450; 71046; 72125; 80053; 81001; 84484; 85025; 85610; 85730; 93005; 99285

== ENCOUNTER → 2020-06-21 | Outpatient (CLI) | payer MEDICARE ==
[2020-06-21 10:03] LABS: Basophils % (A) 1 %; Eosinophils # (A) 0.1 k/uL (0-0.7); Eosinophils % (A) 2 %; HCT 40.1 % (34.0-46.0); HGB 12.5 gm/dL (11.4-16.0); Lymphocytes # (A) 0.3 k/uL (1.0-4.8); Lymphocytes % (A) 6 %; MCH 32.5 pg (25.0-35.0); MCHC 31.3 g/dL (31.0-37.0); MCV 103.8 fL (80.0-100.0); Macrocytosis Slight; Mean Platelet Volume 7.4; Monocytes # (A) 0.2 k/uL (0-1.0); Monocytes % (A) 5 %; Neutrophils # (A) 3.7 k/uL (1.3-7.7); Neutrophils % (A) 85 %; Platelet Count 188 k/uL (150-450); RBC 3.86 m/uL (3.80-5.40); RDW 13.2 % (11.5-15.5); WBC 4.4 k/uL (3.8-10.6)
[2020-06-21 10:40] LABS: Appearance,Urine Cloudy (Clear); Bacteria,Urine Occasional /hpf; Bilirubin,Urine Negative (Negative); Blood,Urine Negative (Negative); Color,Urine Yellow; Glucose,Urine (UA) Negative (Negative); Ketones,Urine Negative (Negative); Leukocyte Esterase,Urine Large (Negative); Mucus,Urine Rare /hpf; Nitrite,Urine Negative (Negative); PH, Urine 6.5 (5.0-8.0); Protein,Urine Negative (Negative); Specific Gravity,Urine 1.011 (1.001-1.035); Squamous Epithelial Cell,Urine <1 /hpf (0-4); Urobilinogen,Urine <2.0 mg/dL (<2.0); WBC,Urine 89 /hpf (0-5)
[2020-06-21 10:48] LABS: Protein/Creatinine Ratio,Urine 0.189
[2020-06-21 23:05] LABS: % Iron Saturation 27.87 (12.00-45.00); Albumin 3.9 g/dL (3.80-4.90); Anion Gap 8.3 mmol/L (4.00-12.00); BUN/Creat Ratio 16.36 Ratio (12.00-20.00); Carbon Dioxide 27.7 mmol/L (21.6-31.8); Magnesium 2.2 mg/dL (1.5-2.4); Non-African American GFR(CKD) 45.7 (60.0-200.0); Phosphorus 4.1 mg/dL (2.4-5.1); Potassium 4.4 mmol/L (3.5-5.5); Uric Acid 3.8 mg/dL (2.9-7.7)
[2020-06-21 23:13] LABS: Ferritin 53.8 ng/mL (10.0-291.0)
== END | disposition home or self-care (01) ==
LOC: LABWHC1 08:03
PROVIDERS: ATTEND Internal Medicine Nephrology
DX: N18.30 Chronic kidney disease, stage 3 unspecified (principal); D63.1 Anemia in chronic kidney disease; E55.9 Vitamin D deficiency, unspecified; N25.81 Secondary hyperparathyroidism of renal origin; M10.9 Gout, unspecified; N39.0 Urinary tract infection, site not specified
CPT/HCPCS: 36415; 80048; 81001; 82040; 82306; 82570; 82728; 83540; 83550; 83735; 83970; 84100; 84156; 84550; 85025

== ENCOUNTER → 2020-10-27 | Outpatient (CLI) | payer MEDICARE ==
[2020-10-27 11:19] LABS: Basophils # (A) 0.02 X 10*3/uL (0.00-0.10); Basophils % (A) 0.6 %; Eosinophils # (A) 0.07 X 10*3/uL (0.04-0.35); Eosinophils % (A) 1.9 %; HCT 37.4 % (37.2-46.3); HGB 11.7 g/dL (12.0-15.0); Lymphocytes % (A) 8.3 %; MCH 32.2 pg (27.0-32.0); MCHC 31.3 g/dL (32.0-37.0); Monocytes # (A) 0.36 X 10*3/uL (0.20-1.00); Neutrophils # (A) 2.85 X 10*3/uL (1.80-7.70); Neutrophils % (A) 78.9 %; Platelet Count 192 X 10*3/uL (140-440); RBC 3.63 X 10*6/uL (4.10-5.20); WBC 3.61 X 10*3/uL (4.50-10.00)
[2020-10-27 12:24] LABS: ALT 14 U/L (8-44); AST 18 U/L (13-35); African American GFR (CKD) 47.7 (60.0-200.0); Albumin/Globulin Ratio 3.23 (1.60-3.17); Alkaline Phosphatase 71 U/L (41-126); Calcium 9.4 mg/dL (8.7-10.3); Carbon Dioxide 27.6 mmol/L (21.6-31.8); Chloride 106 mmol/L (96-109); Chol/HDL Ratio 2.52; Cholesterol 194 mg/dL (0-200); Globulin 1.3 g/dL (1.6-3.3); Glucose 86 mg/dL (70-110); Non-African American GFR(CKD) 41.2 (60.0-200.0); Potassium 4.3 mmol/L (3.5-5.5); Sodium 139 mmol/L (135-145); Total Bilirubin 0.8 mg/dL (0.2-1.2); Total Protein 5.5 g/dL (6.2-8.2); Triglycerides <50.0 mg/dL (0.0-149.0)
[2020-10-27 18:06] LABS: Hemoglobin A1C 4.9 % (4.0-6.0)
== END | disposition home or self-care (01) ==
LOC: LABWHC1 07:19
PROVIDERS: ATTEND Family Medicine
DX: E11.9 Type 2 diabetes mellitus without complications (principal); I10 Essential (primary) hypertension; Z79.899 Other long term (current) drug therapy
CPT/HCPCS: 36415; 80053; 80061; 83036; 84443; 85025

== ENCOUNTER → 2020-12-20 | Outpatient (CLI) | payer MEDICARE ==
[2020-12-20 08:36] LABS: Appearance,Urine Cloudy (Clear); Bacteria,Urine Occasional /hpf; Bilirubin,Urine Negative (Negative); Blood,Urine Negative (Negative); Color,Urine Yellow; Glucose,Urine (UA) Negative (Negative); Ketones,Urine Negative (Negative); Leukocyte Esterase,Urine Large (Negative); Mucus,Urine Rare /hpf; Nitrite,Urine Negative (Negative); Protein,Urine Negative (Negative); Specific Gravity,Urine 1.008 (1.001-1.035); Urobilinogen,Urine <2.0 mg/dL (<2.0); WBC,Urine >182 /hpf (0-5)
[2020-12-20 09:26] LABS: Creatinine,Urine Random 82.3 mg/dL; Protein/Creatinine Ratio,Urine 0.182
[2020-12-20 17:14] LABS: Basophils # (A) 0.04 X 10*3/uL (0.00-0.10); Basophils % (A) 0.8 %; Eosinophils # (A) 0.15 X 10*3/uL (0.04-0.35); Eosinophils % (A) 2.9 %; HGB 11.8 g/dL (12.0-15.0); Lymphocytes # (A) 0.27 X 10*3/uL (0.90-5.00); Lymphocytes % (A) 5.2 %; MCHC 31.1 g/dL (32.0-37.0); Mean Platelet Volume 10.1 fL (9.5-12.2); Monocytes # (A) 0.64 X 10*3/uL (0.20-1.00); Monocytes % (A) 12.4 %; Neutrophils # (A) 4.05 X 10*3/uL (1.80-7.70); Neutrophils % (A) 78.3 %; Platelet Count 229 X 10*3/uL (140-440); RBC 3.69 X 10*6/uL (4.10-5.20); WBC 5.17 X 10*3/uL (4.50-10.00)
[2020-12-20 17:51] LABS: Ferritin 71.7 ng/mL (10.0-291.0)
[2020-12-20 18:58] LABS: % Iron Saturation 22.47 (12.00-45.00); African American GFR (CKD) 59.5 (60.0-200.0); Albumin 4.2 g/dL (3.80-4.90); Anion Gap 9.3 mmol/L (4.00-12.00); Calcium 9.6 mg/dL (8.7-10.3); Carbon Dioxide 26.7 mmol/L (21.6-31.8); Magnesium 2.7 mg/dL (1.5-2.4); Non-African American GFR(CKD) 51.3 (60.0-200.0); Phosphorus 4.8 mg/dL (2.4-5.1); Potassium 4.1 mmol/L (3.5-5.5); Uric Acid 2.8 mg/dL (2.9-7.7)
== END | disposition home or self-care (01) ==
LOC: LABWHC1 07:33
PROVIDERS: ATTEND Nurse Practitioner Family
DX: D50.9 Iron deficiency anemia, unspecified (principal); E55.9 Vitamin D deficiency, unspecified; N25.81 Secondary hyperparathyroidism of renal origin; M10.9 Gout, unspecified; N39.0 Urinary tract infection, site not specified; N18.30 Chronic kidney disease, stage 3 unspecified; R80.9 Proteinuria, unspecified
CPT/HCPCS: 36415; 80048; 81001; 82040; 82306; 82570; 82728; 83540; 83550; 83735; 83970; 84100; 84156; 84550; 85025

== ENCOUNTER 2021-03-27 16:41 | Emergency (ER) | payer MEDICARE ==
[2021-03-27 17:04] VITALS: BP 132/72; PULSE 69; RESP 16; TEMP 97.4
[2021-03-27] MEDS ORDERED: ACETAMINOPHEN TAB 325 MG TAB PO STA (18:45)
--- NOTE | 2021-03-27 19:23 | CT ---
EXAMINATION TYPE: CT brain tia coppola con DATE OF EXAM: 03/27/2021 COMPARISON: 02/07/2020 HISTORY: Patient fell out of bed, on blood thinners. CT DLP: 1215.8 mGycm Automated exposure control for dose reduction was used. There is cerebral atrophy. There is no mass effect nor midline shift. There is no sign of intracrania l hemorrhage. The calvarium is intact. The cervical vertebra show some straightening. There is mild a nterior subluxation of C4 in relation to C5 of 3 mm. There is some disc space narrowing at C5-6 and C 6-7 with spurring of the endplates. There is multilevel cervical hypertrophic facet arthropathy. Ther e is no compression fracture. IMPRESSION: Spondylotic changes in the cervical spine. C4-5 subluxation mild deformity. No change compared to old exam. No fracture. Cerebral atrophy. No acute intracranial abnormality. No change.
--- NOTE | 2021-03-27 19:44 | ED ---
Fall HPI - General Source: patient Mode of arrival: ambulatory <Denisa Bang - Last Filed: 03/27/21 23:21> <Bianca Manning - Last Filed: 03/28/21 01:10> - General Chief Complaint: Fall Stated Complaint: fall, head & arm pain Time Seen by Provider: 03/27/21 17:56 - History of Present Illness Initial Comments: 85 year-old female patient presents to the emergency department presents sent by her physician for CT of the head. Patient had a fall out of bed two days ago. She hit her head on the night stand and injured her right shoulder. States that she was sleeping in the next thing she knew she was falling from bed. She denies any loss of consciousness after the injury. Denies headache, nausea, or vomiting. Denies any blurred or double vision. Patient was having pretty significant right shoulder pain so she went [facility] and was diagnosed with a shoulder separation. She was given a sling. They did oren mmend she obtain a computed tomography scan. She called her doctor and he told her to come to the emergency department. Patient does take aspirin daily. No other blood thinning medications. Denies any neck or back pain. Denies any hip pain. States she's been ambulating without difficulty. (Denisa Bang) - Related Data Home Medications Medication Instructions Recorded Confirmed Cholecalciferol [Vitamin D3] 1,000 unit PO DAILY 12/07/18 12/07/18 Vit C/E/Zn/Coppr/Lutein/Zeaxan 1 cap PO BID 12/07/18 12/07/18 [Preservision Areds 2 Softgel] Previous Rx's Medication Instructions Recorded Aspirin 81 mg PO DAILY #30 chewable 12/08/18 atenoloL [Atenolol] 25 mg PO Q12HR #60 tablet 12/08/18 Allergies Allergy/AdvReac Type Severity Reaction Status Date / Time codeine AdvReac Vomiting Verified 03/27/21 17:02 Review of Systems ROS Other: All systems not noted in ROS Statement are negative. <Denisa Bang - Last Filed: 03/27/21 23:21> ROS Other: All systems not noted in ROS Statement are negative. <Bianca Manning - Last Filed: 03/28/21 01:10> ROS Statement: Those systems with pertinent positive or pertinent negative responses have been documented in the HPI. Past Medical History Past Medical History: Atrial Fibrillation, Hypertension Additional Past Medical History / Comment(s): migraines, "leaking heart valves." History of Any Multi-Drug Resistant Organisms: None Reported Past Surgical History: Appendectomy, Bowel Resection, Cholecystectomy, Orthopedic Surgery Past Anesthesia/Blood Transfusion Reactions: No Reported Reaction Past Psychological History: No Psychological Hx Reported Smoking Status: Never smoker Past Alcohol Use History: None Reported, Rare Past Drug Use History: None Reported <Denisa Bang - Last Filed: 03/27/21 23:21> General Exam Limitations: no limitations General appearance: alert, in no apparent distress, other (This is a well- developed, well-nourished elderly female patient in no acute distress. Vital signs upon presentation are temperature 97.4F, pulse 69, respirations 16, blood pressure 132/72, pulse ox 97% on room air.) Eye exam: Present: normal appearance, PERRL, EOMI. Absent: scleral icterus, conjunctival injection, nystagmus, periorbital swelling ENT exam: Present: normal exam, normal oropharynx, mucous membranes moist Neck exam: Present: normal inspection, full ROM, other (Nontender, no step-off, no deformity to firm midline palpation of the posterior cervical spine. Full range of motion without pain or limitation.). Absent: tenderness, meningismus, lymphadenopathy Respiratory exam: Present: normal lung sounds bilaterally. Absent: respiratory distress, wheezes, rales, rhonchi, stridor Cardiovascular Exam: Present: regular rate, normal rhythm, normal heart sounds. Absent: systolic murmur, diastolic murmur, rubs, gallop, clicks GI/Abdominal exam: Present: soft, normal bowel sounds. Absent: distended, tenderness, guarding, rebound, rigid Extremities exam: Present: normal inspection, full ROM, normal capillary refill, other (Skin to the right arm is pink, warm, dry. Cap refill less than 3 seconds. Radial pulses 2+.). Absent: tenderness, pedal edema, joint swelling, calf tenderness Back exam: Present: normal inspection, other (Nontender, no step-off, no deformity to firm midline palpation of the thoracic and lumbar vertebrae. Full range of motion without pain or limitation.). Absent: vertebral tenderness Neurological exam: Present: alert, oriented X3, CN II-XII intact Psychiatric exam: Present: normal affect, normal mood Skin exam: Present: warm, dry, intact, normal color. Absent: rash <Denisa Bang - Last Filed: 03/27/21 23:21> Course Vital Signs 03/27/21 16:58 Temperature 97.4 F L Pulse Rate 69 Respiratory 16 Rate Blood Pressure 132/72 O2 Sat by Pulse 97 Oximetry Medical Decision Making - Radiology Data Radiology results: report reviewed, image reviewed <Denisa Bang - Last Filed: 03/27/21 23:21> <Bianca Manning - Last Filed: 03/28/21 01:10> - Medical Decision Making 85 year-old year-old female patient was sent in by her physician for CT brain after a fall yesterday. Physical exam was remarkable. She is neurologically intact with no focal deficits. She does have a sling on the right arm from right shoulder separation. CT brain was obtained and was negative. CTs neck was negative. She'll be discharged to follow up with her primary care physician as needed. Return parameters were discussed in detail. She verbalizes understanding and agrees with this plan. My attending is Dr. Manning. (Denisa Bang) I was available for consultation in the emergency department. The history and physical exam were done by the midlevel provider. I was consulted for this patients care. I reviewed the case with the midlevel provider and based on their presentation of the patient, I agree with the assessment, medical decision making and plan of care as documented. Chart was dictated using [employer] dictation software. Attempts were made to correct any dictation errors however some typographical errors may persist. (Bianca Manning) - Radiology Data CT brain and C-spine without contrast was obtained. Report was reviewed in its entirety. Impression by Dr. Banks shows spondylotic changes of cervical spine. C4-5 subluxation mild deformity. No change compared to old exam. No fracture. (Denisa Bang) Disposition Is patient prescribed a controlled substance at d/c from ED?: No Time of Disposition: 19:44 <Denisa Bang - Last Filed: 03/27/21 23:21> <Bianca Manning - Last Filed: 03/28/21 01:10> Clinical Impression: Fall Disposition: HOME SELF-CARE Condition: Good Instructions (If sedation given, give patient instructions): Head Injury (ED) Additional Instructions: Follow-up with the primary care physician for recheck in 1-2 days. Return to the emergency department for any new, worsening, or concerning symptoms. Referrals: Shawn England MD [Primary Care Provider] - 1-2 days
== END 2021-03-27 20:21 | disposition home or self-care (01) ==
LOC: EC 16:41
DX: S49.91XA Unspecified injury of right shoulder and upper arm, initial encounter (principal); I10 Essential (primary) hypertension; I48.91 Unspecified atrial fibrillation; Z79.01 Long term (current) use of anticoagulants; Z79.82 Long term (current) use of aspirin; Z88.5 Allergy status to narcotic agent; W06.XXXA Fall from bed, initial encounter; G43.909 Migraine, unspecified, not intractable, without status migrainosus
CPT/HCPCS: 70450; 72125; 99284

== ENCOUNTER 2021-04-08 09:40 | Emergency (ER) | payer MEDICARE ==
[2021-04-08 09:52] VITALS: RESP 18; TEMP 97.6
--- NOTE | 2021-04-08 09:52 | ED ---
General Adult HPI - General Chief complaint: Fall Stated complaint: Rt knee pain Time Seen by Provider: 04/08/21 09:40 Source: patient, EMS, RN notes reviewed, old records reviewed Mode of arrival: EMS Limitations: no limitations - History of Present Illness Initial comments: This is an 86-year-old female who presents to the emergency department complai terence of right knee pain. Patient states she is issues medication tripped over a rug and fell onto her knee. Patient states after that she got up and was able to finish dinner cleanup after dinner but the middle night when she woke up she had quite a bit more pain and was very difficult for her to get up and walk on it because the pain. Patient states she's also noticed a little bit of swelling today above the kneecap and on the medial aspect of the knee. Patient denies any ankle pain patient denies any hip pain patient denies hitting her head or neck. Patient denies any headache. Patient states she is trauma a few weeks ago where she did hit her head and she has had no symptoms since. - Related Data Home Medications Medication Instructions Recorded Confirmed Cholecalciferol [Vitamin D3] 1,000 unit PO DAILY 12/07/18 12/07/18 Vit C/E/Zn/Coppr/Lutein/Zeaxan 1 cap PO BID 12/07/18 12/07/18 [Preservision Areds 2 Softgel] Previous Rx's Medication Instructions Recorded Aspirin 81 mg PO DAILY #30 chewable 12/08/18 atenoloL [Atenolol] 25 mg PO Q12HR #60 tablet 12/08/18 Allergies Allergy/AdvReac Type Severity Reaction Status Date / Time codeine AdvReac Vomiting Verified 03/27/21 17:02 Review of Systems ROS Statement: Those systems with pertinent positive or pertinent negative responses have been documented in the HPI. ROS Other: All systems not noted in ROS Statement are negative. Past Medical History Past Medical History: Atrial Fibrillation, Hypertension Additional Past Medical History / Comment(s): migraines, "leaking heart valves." History of Any Multi-Drug Resistant Organisms: None Reported Past Surgical History: Appendectomy, Bowel Resection, Cholecystectomy, Orthopedic Surgery Past Anesthesia/Blood Transfusion Reactions: No Reported Reaction Past Psychological History: No Psychological Hx Reported Smoking Status: Never smoker Past Alcohol Use History: Occasional Past Drug Use History: None Reported General Exam - General Exam Comments Initial Comments: GENERAL Patient is well-developed and well-nourished. Patient is in mild distress. EYES Patient's pupils are equal and round. Extraocular motion is intact SKIN Unremarkable NEURO The patient is alert and oriented 3 PYSCH Patient has normal interpersonal interactions. MUSCULOSKELETAL Patient has an effusion in the suprapatellar region patella itself is nontender. Patient does have some pain with lateral medial collateral ligament testing. Limitations: no limitations Course Vital Signs 04/08/21 09:43 Temperature 97.6 F Pulse Rate 69 Respiratory 18 Rate Blood Pressure 166/74 O2 Sat by Pulse 97 Oximetry Medical Decision Making - Medical Decision Making X-ray of the knee shows a suprapatellar effusion. There is no fracture dislocation noted. Disposition Clinical Impression: Knee sprain Disposition: HOME SELF-CARE Instructions (If sedation given, give patient instructions): Knee Sprain (ED), Fall Prevention for Older Adults (ED) Is patient prescribed a controlled substance at d/c from ED?: No Referrals: Shawn England MD [Primary Care Provider] - 1-2 days Mina Guillermo DO [Doctor of Osteopathic Medicine] - 1-2 days Time of Disposition: 10:18
--- NOTE | 2021-04-08 10:14 | XR ---
EXAMINATION TYPE: XR knee complete RT DATE OF EXAM: 04/08/2021 COMPARISON: NONE HISTORY: Pain TECHNIQUE: Three views are submitted. FINDINGS: Diffuse osteopenia. Soft tissue calcification and arthropathy of the medial compartment and patellofe moral compartment. There is a moderate-sized suprapatellar bursal fluid collection.. Osseous structu res are intact. No acute fracture seen. IMPRESSION: 1. No acute fracture or dislocation. There is arthropathy in a moderate-sized suprapatellar bursal f luid collection.
[2021-04-08 10:46] VITALS: BP 156/71; PULSE 71
== END 2021-04-08 10:39 | disposition home or self-care (01) ==
LOC: EC 09:40
DX: S83.91XA Sprain of unspecified site of right knee, initial encounter (principal); I10 Essential (primary) hypertension; I48.91 Unspecified atrial fibrillation; Z79.82 Long term (current) use of aspirin; Z79.899 Other long term (current) drug therapy; Z88.5 Allergy status to narcotic agent; W01.0XXA Fall on same level from slipping, tripping and stumbling without subsequent striking against object, initial encounter
CPT/HCPCS: 73562; 99284; L1830 ×2

== ENCOUNTER → 2022-12-24 | Outpatient (CLI) | payer MEDICARE ==
[2022-12-24 16:44] LABS: Basophils # (A) 0.03 X 10*3/uL (0.00-0.10); Basophils % (A) 0.5 %; Eosinophils # (A) 0.14 X 10*3/uL (0.04-0.35); Eosinophils % (A) 2.6 %; HCT 37.9 % (37.2-46.3); Immature Grans, Automated 0.4 %; Lymphocytes # (A) 0.48 X 10*3/uL (0.90-5.00); Lymphocytes % (A) 8.7 %; MCH 31.9 pg (27.0-32.0); MCHC 31.7 g/dL (32.0-37.0); MCV 100.8 fL (80.0-97.0); Mean Platelet Volume 9.9 fL (9.5-12.2); Monocytes # (A) 0.39 X 10*3/uL (0.20-1.00); Monocytes % (A) 7.1 %; NRBC Per 100 WBC 0 /100 WBCS (0.0-0.0); Neutrophils # (A) 4.43 X 10*3/uL (1.80-7.70); Neutrophils % (A) 80.7 %; Platelet Count 229 X 10*3/uL (140-440); RBC 3.76 X 10*6/uL (4.10-5.20); RDW 13.4 % (11.5-14.5); WBC 5.49 X 10*3/uL (4.50-10.00)
[2022-12-24 16:45] LABS: ALT 18 U/L (8-44); AST 18 U/L (13-35); African American GFR (CKD) 47.1 (60.0-200.0); Albumin 4.5 g/dL (3.8-4.9); Albumin/Globulin Ratio 2.65 (1.60-3.17); Alkaline Phosphatase 75 U/L (41-126); BUN/Creat Ratio 16.92 Ratio (12.00-20.00); Blood Urea Nitrogen 20.3 mg/dL (9.0-27.0); Calcium 9.5 mg/dL (8.7-10.3); Carbon Dioxide 27.1 mmol/L (20.0-27.5); Chloride 104 mmol/L (96-109); Chol/HDL Ratio 2.87 Ratio; Globulin 1.7 g/dL (1.6-3.3); Glucose 91 mg/dL (70-110); LDL Cholesterol,Calculated 126.8 mg/dL (0.0-131.0); Non-African American GFR(CKD) 40.6 (60.0-200.0); Potassium 4.9 mmol/L (3.5-5.5); Sodium 139 mmol/L (135-145); Total Protein 6.2 g/dL (6.2-8.2); VLDL Calculation 13.86 mg/dL (5.00-40.00)
== END | disposition home or self-care (01) ==
LOC: LABWHC1 07:40
PROVIDERS: ATTEND Family Medicine
DX: I10 Essential (primary) hypertension (principal); Z79.899 Other long term (current) drug therapy; B89 Unspecified parasitic disease
CPT/HCPCS: 36415; 80053; 80061; 83036; 84443; 85025

== ENCOUNTER → 2024-02-17 | Outpatient (CLI) | payer MEDICARE ==
[2024-02-17 14:56] LABS: HCT 42.7 % (37.2-46.3); HGB 14.3 g/dL (12.0-15.0); MCH 32.1 pg (27.0-32.0); MCHC 33.5 g/dL (32.0-37.0); Mean Platelet Volume 9.1 FL (9.5-12.2); NRBC Per 100 WBC 0 X 10*3/uL (0.00-0.01); Platelet Count 173 X 10*3/uL (140-440); RBC 4.45 X 10*6/uL (4.10-5.20); RDW 12.6 % (11.5-14.5); WBC 6.01 X 10*3/uL (4.50-10.00)
[2024-02-17 15:24] LABS: ALT 12 U/L (8-44); AST 18 U/L (13-35); Albumin 4.4 g/dL (3.8-4.9); Albumin/Globulin Ratio 2.59 Ratio (1.60-3.17); Alkaline Phosphatase 67 U/L (41-126); BUN/Creat Ratio 13.54 Ratio (12.00-20.00); Blood Urea Nitrogen 17.6 mg/dL (9.0-27.0); Calcium 9.4 mg/dL (8.7-10.3); Carbon Dioxide 23.9 mmol/L (21.6-31.8); Chloride 106 mmol/L (96-109); Globulin 1.7 g/dL (1.6-3.3); Glucose 98 mg/dL (70-110); Iron 83 UG/DL (50-170); LDL Cholesterol,Calculated 111.1 mg/dL (0.0-131.0); Potassium 4.3 mmol/L (3.5-5.5); Sodium 141 mmol/L (135-145); Total Bilirubin 0.5 mg/dL (0.3-1.2); Total Protein 6.1 g/dL (6.2-8.2)
== END | disposition home or self-care (01) ==
LOC: LABWHC1 08:40
PROVIDERS: ATTEND Family Medicine
DX: I10 Essential (primary) hypertension (principal); E11.9 Type 2 diabetes mellitus without complications; Z79.899 Other long term (current) drug therapy
CPT/HCPCS: 36415; 80053; 80061; 82306; 83036; 83540; 84443; 85027

== ENCOUNTER 2024-08-02 11:35 | Inpatient (IN) | payer MEDICARE ==
--- NOTE | 2024-08-02 12:08 | CT ---
EXAMINATION TYPE: CT brain cspine wo con CT DLP: 1131.7 mGycm, Automated exposure control for dose reduction was used. DATE OF EXAM: 08/02/2024 11:57 AM COMPARISON: CT brain C-spine 03/27/2021. CLINICAL INDICATION:Female, 89 years old with history of trauma; FALL ON BLOOD THINNERS, NO LOC TECHNIQUE: Brain: Multiple axial CT images of the brain were obtained without IV contrast. Cspine: Axial CT images from the skull base to the inferior aspect of T2 we obtained without intraven ous contrast. Coronal and sagittal reformatted images were also reviewed. FINDINGS: Brain: Extra-axial spaces: No abnormal extra-axial fluid collections. Ventricular system: Within normal limits Cerebral parenchyma: Cerebral atrophy. No acute intraparenchymal hemorrhage or mass effect. The east -white junction is well differentiated. Scattered hypoattenuating areas are seen within the periventr icular white matter. Cerebellum: Unremarkable. Mass effect: No evidence of midline shift. Intracranial vasculature: Atherosclerotic calcifications of the intracranial vessels. Soft tissues: Normal. Calvarium/osseous structures: No depressed skull fracture. Paranasal sinuses and mastoid air cells: Clear. Visualized orbits: Bilateral aphakia Cervical spine: Fracture: None. Osseous structures: Multilevel degenerative disc disease changes with endplate spurring and disc oste ophyte complex's. Vertebral alignment: Stable grade 1 anterolisthesis of C3 on C4 and C4 on C5. Spinal canal/Neural Foramina: Disc osteophyte complexes at C5-C6 with at least mild spinal canal sten osis. Facet joint uncovertebral joint arthropathy scattered throughout the cervical spine with varyin g degrees of neural foraminal stenosis. Most prominent on the right at C3-C4. Neck soft tissues: Prevertebral soft tissues are within normal limits. Other: The airway is patent. The lung apices are clear. IMPRESSION: 1. No acute intracranial process. 2. Nonspecific white matter changes, likely secondary to chronic small vessel ischemic disease. 3. No evidence of cervical spine fracture. 4. Mild to moderate multilevel degenerative disc disease. 5. Stable grade 1 anterolisthesis of C3 on C4 and C4 on C5. [facility], , 08/02/2024 12:06 PM
[2024-08-02 12:15] LABS: ALT 20 U/L (4-34); AST 28 U/L (14-36); African American GFR (CKD) 68 (>60 ml/min/1.73 sqM); Albumin 3.9 g/dL (3.5-5.0); Alcohol <10 mg/dL; Alkaline Phosphatase 69 U/L (38-126); Anion Gap 9 mmol/L; Blood Urea Nitrogen 16 mg/dL (7-17); Calcium 8.2 mg/dL (8.4-10.2); Carbon Dioxide 21 mmol/L (22-30); Chloride 95 mmol/L (98-107); Glucose 99 mg/dL (74-99); Non-African American GFR(CKD) 59 (>60 ml/min/1.73 sqM); Potassium 3.8 mmol/L (3.5-5.1); RBC 3.79 m/uL (3.80-5.40); Sodium 125 mmol/L (137-145); Total Bilirubin 0.8 mg/dL (0.2-1.3); Total Protein 6.1 g/dL (6.3-8.2); WBC 4.4 k/uL (3.8-10.6)
[2024-08-02 12:16] LABS: Basophils % (A) 0 %; Eosinophils % (A) 0 %; HCT 36.2 % (34.0-46.0); HGB 11.9 gm/dL (11.4-16.0); Lymphocytes # (A) 0.2 k/uL (1.0-4.8); Lymphocytes % (A) 5 %; MCH 31.4 pg (25.0-35.0); MCHC 32.8 g/dL (31.0-37.0); MCV 95.6 fL (80.0-100.0); Mean Platelet Volume 8.1; Monocytes # (A) 0.4 k/uL (0-1.0); Monocytes % (A) 9 %; Neutrophils # (A) 3.6 k/uL (1.3-7.7); Neutrophils % (A) 82 %; Platelet Count 157 k/uL (150-450); RDW 13.8 % (11.5-15.5)
[2024-08-02 12:23] LABS: Partial Thromboplastin Time 31.4 sec (22.0-30.0); Prothrombin Time 11.1 sec (10.0-12.5)
[2024-08-02] MEDS: ACETAMINOPHEN TAB 500 MG TAB PO STA (12:29)
[2024-08-02] MEDS: SODIUM CHLORIDE 0.9% 1,000 ML IV STA ×2 (12:29→14:31)
[2024-08-02] MEDS: MORPHINE SULFATE 2 MG/ML SYRINGE IVP STA (12:35)
[2024-08-02] MEDS: ONDANSETRON 4 MG/2 ML VIAL IVP STA (12:35)
[2024-08-02] MEDS: DIPH,PERTUS(ACELL)TETVAC-LF 0.5 ML VIAL IM ONE (13:05)
--- NOTE | 2024-08-02 13:31 | XR ---
EXAMINATION TYPE: XR chest 1V portable, XR pelvis AP view, XR elbow 3 views RT, XR shoulder complete 3 views RT DATE OF EXAM: 08/02/2024 12:55 PM COMPARISON: Chest radiographs from 11/02/2023 CLINICAL INDICATION: Female, 89 years old with history of trauma, , FINDINGS: Chest: Heart upper limits of normal in size. Hyperinflation. No jose consolidation or pleural effusion. Gerry cified granuloma in the periphery of the left base. Right shoulder: There is some narrowing of the subacromial space. Mild marginal spurring at the AC joint. Osteopenia. No acute fracture, subluxation, dislocation is seen. Right elbow: No elbow joint effusion. There is soft tissue bunching probably due to patient's clothing. Clinically correlate. No acute fracture, subluxation, dislocation seen. Pelvis: Mild superolateral joint space narrowing right hip . Metallic zipper projects just below the pubic sy mphysis. Additional metallic density, likely external artifact projects at the left iliac bone. Some staple lines along the visualized right mid abdomen from prior bowel surgery. Partially visualized le ft total hip arthroplasty. There is osteopenia. No displaced fracture is seen. IMPRESSION: 1. Chest: COPD and borderline heart size. No definite acute process. 2. Right shoulder: Some narrowing of the subacromial space. There may be an underlying age-indetermin ate (probably chronic) rotator cuff tear. Otherwise, no acute osseous abnormality seen. 3. Right elbow: Soft tissue bunching probably related to overlying clothing. No acute osseous abnorma lity seen. 4. Pelvis: Osteopenia. Mild degenerative change right hip. Partially visualized previous left total h ip arthroplasty. No displaced fracture seen. [facility], , 08/02/2024 1:29 PM
[2024-08-02] MEDS: METOPROLOL TARTRATE 5 MG/5 ML VIAL IVP SCH (14:16)
[2024-08-02] MEDS ORDERED: NALOXONE 0.4 MG/ML 1 ML VIAL IV PRN (14:49)
[2024-08-02] MEDS ORDERED: ONDANSETRON 4 MG/2 ML VIAL IVP PRN (14:49)
--- NOTE | 2024-08-02 14:52 | ED ---
General Adult HPI - General Chief complaint: Fall Stated complaint: Fall Time Seen by Provider: 08/02/24 11:42 Source: patient, EMS, RN notes reviewed, old records reviewed Mode of arrival: EMS - History of Present Illness Initial comments: Patient is an 89-year-old female presents emergency department as a code coag. Patient is on Eliquis for A-fib and fell. States she stood up and began walking when she felt lightheaded like she fainted. Patient fell down. May have hit her head but did not suffer any significant head trauma. Is complaining of a skin tear at her right elbow as well as acute on chronic right shoulder pain. He has no other acute complaints at this time. States she took all of her normal medications this morning. Is on Eliquis. Presents for further evaluation at this time. Denies chest pain, shortness of breath, abdominal pain, nausea, vomiting. - Related Data Home Medications Medication Instructions Recorded Confirmed Vit C/E/Zn/Coppr/Lutein/Zeaxan 1 cap PO BID 12/07/18 08/02/24 [Preservision Areds 2 Softgel] Cholecalciferol (Vitamin D3) 50 mcg PO DAILY 11/03/23 08/02/24 [Vitamin D3 (50 Mcg = 2000 Iu)] Cyanocobalamin (Vitamin B-12) 1,000 mcg PO DAILY 11/03/23 08/02/24 [Vitamin B-12] atenoloL 25 mg PO BID 11/03/23 08/02/24 hydrALAZINE HCL [Apresoline] 25 mg PO AC-TID 11/03/23 08/02/24 Apixaban [Eliquis] 2.5 mg PO BID 08/02/24 08/02/24 cefuroxime axetiL [Ceftin] 500 mg PO DIRECTED 08/02/24 08/02/24 dexAMETHasone [Decadron] 4 mg PO DIRECTED 08/02/24 08/02/24 Previous Rx's Medication Instructions Recorded Aspirin 81 mg PO DAILY #30 chewable 12/08/18 Ipratropium-Albuterol Nebulize 3 ml INHALATION RT-QID 30 Days 11/04/23 [Duoneb 0.5 mg-3 mg/3 ml Soln] #120 each Midodrine [ProAmatine] 5 mg PO AC-TID tab 11/04/23 Nitroglycerin Sl Tabs [Nitrostat] 0.4 mg SUBLINGUAL Q5M PRN tab 11/04/23 Allergies Allergy/AdvReac Type Severity Reaction Status Date / Time codeine AdvReac Vomiting Verified 08/02/24 15:21 Review of Systems ROS Statement: Those systems with pertinent positive or pertinent negative responses have been documented in the HPI. Review of Systems: CONST: Denies fever EYES: Denies blurry vision ENT: Denies nasal congestion C/V: Denies Chest pain RESP: Denies shortness of breath GI: Denies abdominal pain : Denies dysuria SKIN: Denies rash. MSK: Endorses right shoulder pain NEURO: Endorses weakness ROS Other: All systems not noted in ROS Statement are negative. Past Medical History Past Medical History: Atrial Fibrillation, Hypertension Additional Past Medical History / Comment(s): migraines, "leaking heart valves." History of Any Multi-Drug Resistant Organisms: None Reported Past Surgical History: Appendectomy, Bowel Resection, Cholecystectomy, Orthopedic Surgery Past Anesthesia/Blood Transfusion Reactions: No Reported Reaction Past Psychological History: No Psychological Hx Reported Smoking Status: Never smoker Past Alcohol Use History: Occasional Past Drug Use History: None Reported - Past Family History Father History Unknown: Yes Course Vital Signs 08/02/24 08/02/24 08/02/24 11:46 13:07 13:34 Temperature 98.0 F Pulse Rate 109 H 144 H 131 H Respiratory 16 20 18 Rate Blood Pressure 132/89 112/82 115/71 O2 Sat by Pulse 98 95 97 Oximetry 08/02/24 08/02/24 08/02/24 13:48 14:20 15:16 Temperature Pulse Rate 140 H 86 82 Respiratory 18 17 19 Rate Blood Pressure 115/71 106/62 119/67 O2 Sat by Pulse 97 96 96 Oximetry Medical Decision Making - Medical Decision Making Was pt. sent in by a medical professional or institution (, PA, [employer], urgent care, hospital, or long term...) When possible be specific @ -No Did you speak to anyone other than the patient for history (EMS, parent, family, police, friend...)? What history was obtained from this source @ -No Did you review nursing and triage notes (agree or disagree)? Why? @ -I reviewed and agree with nursing and triage notes Were old charts reviewed (outside hosp., previous admission, EMS record, old EKG, old radiological studies, urgent care reports/EKG's, long term records)? Report findings @ -Old charts reviewed confirming patient is on Eliquis. Differential Diagnosis (chest pain, altered mental status, abdominal pain women, abdominal pain men, vaginal bleeding, weakness, fever, dyspnea, syncope, he adache, dizziness, GI bleed, back pain, seizure, CVA, palpatations, mental health, musculoskeletal)? @ -Fall, shoulder injury, intracranial injury, dehydration. This list is not all inclusive. EKG interpreted by me (3pts min.). @ -As above X-rays interpreted by me (1pt min.). @ -Chest x-ray reveals no obvious acute cardiopulmonary process. Pelvis x-ray reveals no obvious acute injury. Shoulder x-ray, elbow x-ray revealed no obvious acute injuries. Patient has findings consistent with chronic rotator cuff tear. CT interpreted by me (1pt min.). @ -CT brain, C-spine negative for any obvious acute traumatic injury. U/S interpreted by me (1pt. min.). @ -None done What testing was considered but not performed or refused? (CT, X-rays, U/S, labs)? Why? @ -None What meds were considered but not given or refused? Why? @ -None Did you discuss the management of the patient with other professionals (professionals i.e. , PA, [employer], lab, RT, psych nurse, social services specialist, filling and packing supervisor, teacher, production officer, shoe parts caser)? Give summary @ -Discussed with Dr. England who accepted the admission. Was smoking cessation discussed for >3mins.? @ -No Was critical care preformed (if so, how long)? @ -Yes, 22 minutes Were there social determinants of health that impacted care today? How? (Homele ssness, low income, unemployed, alcoholism, drug addiction, transportation, low edu. Level, literacy, decrease access to med. care, shelter, rehab)? @ -No Was there de-escalation of care discussed even if they declined (Discuss DNR or withdrawal of care, Hospice)? DNR status @ -No What co-morbidities impacted this encounter? (DM, HTN, Smoking, COPD, CAD, Cancer, CVA, ARF, Chemo, Hep., AIDS, mental health diagnosis, sleep apnea, morbid obesity)? @ -Atrial fibrillation on blood thinners Was patient admitted / discharged? Hospital course, mention meds given and route, prescriptions, significant lab abnormalities, going to OR and other pertinent info. @ -Based on patient's presentation and physical exam, presents to the emergency department as a code coag. Patient has no obvious signs of intracranial head trauma. Cervical collar in place. We will obtain trauma labs as well as imaging. Patient agreement this plan. Given IV fluids analgesia medications. Patient does have a skin tear over the right elbow. Tetanus updated. EKG shows A-fib with RVR which patient is intermittently in. She took her morning medications. Imaging returned negative for any obvious acute injury. Cervical collar cleared. Laboratory studies remarkable for hyponatremia of 125 and hypochloremia of 95. Remainder the labs unremarkable. On reevaluation, discussed results with the patient as well as family. Patient given a dose of metoprolol and RVR has been controlled. Discussed I would like to admit her for dehydration and hyponatremia. Patient was in agreement this plan. Discussed that her fainting spell was likely secondary to get chronic what sounds like orthostatic hypotension. I spoke with the admitting provider, Dr. England who accepted the admission. Undiagnosed new problem with uncertain prognosis? @ -No Drug Therapy requiring intensive monitoring for toxicity (Heparin, Nitro, Insulin, Cardizem)? @ -No Were any procedures done? @ -No Diagnosis/symptom? @ -Fall, hyponatremia, dehydration, weakness, skin tear, syncope Acute, or Chronic, or Acute on Chronic? @ -Acute Uncomplicated (without systemic symptoms) or Complicated (systemic symptoms)? @ -Complicated Side effects of treatment? @ -No Exacerbation, Progression, or Severe Exacerbation? @ -No Poses a threat to life or bodily function? How? (Chest pain, [place], [place], pneumonia, PE, COPD, DKA, ARF, appy, cholecystitis, CVA, Diverticulitis, Homicidal, Suicidal, threat to staff... and all critical care pts) @ -Yes - Lab Data Result diagrams: 08/02/24 11:51 08/02/24 11:51 Lab Results 08/02/24 08/02/24 08/02/24 Range/Units 11:51 11:51 11:51 WBC 4.4 (3.8-10.6) k/uL RBC 3.79 L (3.80-5.40) m/uL Hgb 11.9 (11.4-16.0) gm/dL Hct 36.2 (34.0-46.0) % MCV 95.6 (80.0-100.0) fL MCH 31.4 (25.0-35.0) pg MCHC 32.8 (31.0-37.0) g/dL RDW 13.8 (11.5-15.5) % Plt Count 157 (150-450) k/uL MPV 8.1 Neutrophils % 82 % Lymphocytes % 5 % Monocytes % 9 % Eosinophils % 0 % Basophils % 0 % Neutrophils # 3.6 (1.3-7.7) k/uL Lymphocytes # 0.2 L (1.0-4.8) k/uL Monocytes # 0.4 (0-1.0) k/uL Eosinophils # 0.0 (0-0.7) k/uL Basophils # 0.0 (0-0.2) k/uL PT 11.1 (10.0-12.5) sec INR 1.0 (<1.2) APTT 31.4 H (22.0-30.0) sec Sodium 125 L (137-145) mmol/L Potassium 3.8 (3.5-5.1) mmol/L Chloride 95 L (98-107) mmol/L Carbon Dioxide 21 L (22-30) mmol/L Anion Gap 9 mmol/L BUN 16 (7-17) mg/dL Creatinine 0.87 (0.52-1.04) mg/dL Est GFR (CKD-EPI)AfAm 68 (>60 ml/min/1.73 sqM) Est GFR (CKD-EPI)NonAf 59 (>60 ml/min/1.73 sqM) Glucose 99 (74-99) mg/dL Calcium 8.2 L (8.4-10.2) mg/dL Total Bilirubin 0.8 (0.2-1.3) mg/dL AST 28 (14-36) U/L ALT 20 (4-34) U/L Alkaline Phosphatase 69 (38-126) U/L Total Protein 6.1 L (6.3-8.2) g/dL Albumin 3.9 (3.5-5.0) g/dL Serum Alcohol <10 mg/dL Blood Type Blood Type Recheck Bld Type Recheck Status Antibody Screen Spec Expiration Date 08/02/24 Range/Units 11:51 WBC (3.8-10.6) k/uL RBC (3.80-5.40) m/uL Hgb (11.4-16.0) gm/dL Hct (34.0-46.0) % MCV (80.0-100.0) fL MCH (25.0-35.0) pg MCHC (31.0-37.0) g/dL RDW (11.5-15.5) % Plt Count (150-450) k/uL MPV Neutrophils % % Lymphocytes % % Monocytes % % Eosinophils % % Basophils % % Neutrophils # (1.3-7.7) k/uL Lymphocytes # (1.0-4.8) k/uL Monocytes # (0-1.0) k/uL Eosinophils # (0-0.7) k/uL Basophils # (0-0.2) k/uL PT (10.0-12.5) sec INR (<1.2) APTT (22.0-30.0) sec Sodium (137-145) mmol/L Potassium (3.5-5.1) mmol/L Chloride (98-107) mmol/L Carbon Dioxide (22-30) mmol/L Anion Gap mmol/L BUN (7-17) mg/dL Creatinine (0.52-1.04) mg/dL Est GFR (CKD-EPI)AfAm (>60 ml/min/1.73 sqM) Est GFR (CKD-EPI)NonAf (>60 ml/min/1.73 sqM) Glucose (74-99) mg/dL Calcium (8.4-10.2) mg/dL Total Bilirubin (0.2-1.3) mg/dL AST (14-36) U/L ALT (4-34) U/L Alkaline Phosphatase (38-126) U/L Total Protein (6.3-8.2) g/dL Albumin (3.5-5.0) g/dL Serum Alcohol mg/dL Blood Type B Positive Blood Type Recheck B Pos Bld Type Recheck Status No Antibody Screen NEGATIVE Spec Expiration Date 08/05/20242350 - EKG Data -: EKG Interpreted by Me EKG Comments: 12-lead Electrocardiogram Interpretation Note EKG was reviewed and interpreted by myself. 12-lead ECG performed at 1155 is interpreted by me as revealing A-fib with RVR at a rate of 124 beats per minute. Left axis deviation. QRS duration is 81 ms, QTc is 397 ms.. There were no ST or T wave abnormalities to suggest myocardial ischemia or injury. R wave progression across the precordium was delayed. By my interpretation this EKG is non-diagnostic for acute ischemia. Disposition Clinical Impression: Fall, Weakness, Syncope, Skin tear, Hyponatremia, Dehydration Disposition: ADMITTED IP TO THIS HOSP Condition: Stable Time of Disposition: 14:45
[2024-08-02] MEDS: methylPREDNISolone SOD SUCCI 40 MG/ML 1 ML VIAL IV SCH (18:30)
[2024-08-02] MEDS: atenoloL 25 MG TAB PO SCH (20:15)
[2024-08-02] MEDS: APIXABAN 2.5 MG TABLET PO SCH (20:15)
[2024-08-02] MEDS: VIT A,C & E-LUTEIN-MINERALS 1 EACH TAB PO SCH (20:16)
[2024-08-02 20:17] LABS: Appearance,Urine Clear (Clear); Bacteria,Urine Rare /hpf; Bilirubin,Urine Negative (Negative); Blood,Urine Negative (Negative); Color,Urine Colorless; Glucose,Urine (UA) Negative (Negative); Ketones,Urine 1+ (Negative); Leukocyte Esterase,Urine Large (Negative); Nitrite,Urine Negative (Negative); Protein,Urine Negative (Negative); RBC,Urine 6 /hpf (0-5); Specific Gravity,Urine 1.007 (1.001-1.035); Squamous Epithelial Cell,Urine 5 /hpf (0-4); WBC,Urine 15 /hpf (0-5)
[2024-08-02 20:22] LABS: Amphetamine Screen,Urine Not Detected (NotDetected); Barbiturate Screen,Urine Not Detected (NotDetected); Benzodiazepines Screen,Urine Not Detected (NotDetected); Cocaine Screen,Urine Not Detected (NotDetected); Methadone Screen, Urine Not Detected (NotDetected); Opiate Screen,Urine Detected (NotDetected); Oxycodone Screen, Urine Not Detected (NotDetected); Phencyclidine Screen,Urine Not Detected (NotDetected); Tricyclic Antidepressant,Urine Not Detected (NotDetected); Urn Cannabinoid Scrn Not Detected (NotDetected)
[2024-08-02] MEDS: IPRATROPIUM-ALBUTEROL 3 ML NEB INHALATION SCH (20:45)
--- NOTE | 2024-08-02 21:12 | CT ---
EXAMINATION TYPE: CT chest wo con DATE OF EXAM: 08/02/2024 7:11 PM COMPARISON: Multiple prior CT chest studies, most recently dated 226 and 24. CLINICAL INDICATION: Female, 89 years old with history of cap; PHH, CAP. TECHNIQUE: Multiple axial images were obtained through the chest. Sagittal and coronal reformats were created for review. MIP was performed on a separate workstation. CT DLP: 224.8 mGycm, Automated exposure control for dose reduction was used. FINDINGS: LUNGS/ PLEURA: No acute focal consolidation. No pleural effusion or pneumothorax. Scattered subcentim eter outside and noncalcified stable pulmonary nodules. No new suspicious or enlarging pulmonary nodu le or pulmonary mass. AIRWAY: Patent and unremarkable. HEART: Cardiomegaly without pericardial effusion. Coronary artery calcifications. MEDIASTINUM: No gross evidence of adenopathy. VASCULATURE: No aortic aneurysm. MUSCULOSKELETAL: No acute osseous abnormalities. Multilevel thoracic spondylitic changes. SOFT TISSUES/LYMPH NODES: Unremarkable. LOWER NECK: No significant findings. UPPER ABDOMEN: No significant acute findings. IMPRESSION: No acute abnormality in the chest. Specifically, no focal consolidation to suggest pneumonia. [facility], , 08/02/2024 9:09 PM
[2024-08-03 06:28] LABS: Basophils % (A) 0 %; Eosinophils % (A) 0 %; HCT 35.5 % (34.0-46.0); HGB 11.6 gm/dL (11.4-16.0); Hypochromasia Slight; Lymphocytes # (A) 0.2 k/uL (1.0-4.8); Lymphocytes % (A) 6 %; MCH 32.3 pg (25.0-35.0); MCHC 32.6 g/dL (31.0-37.0); MCV 98.9 fL (80.0-100.0); Mean Platelet Volume 7.6; Monocytes # (A) 0.1 k/uL (0-1.0); Monocytes % (A) 3 %; Neutrophils # (A) 2.4 k/uL (1.3-7.7); Neutrophils % (A) 89 %; Platelet Count 149 k/uL (150-450); RBC 3.59 m/uL (3.80-5.40); RDW 13.4 % (11.5-15.5); WBC 2.7 k/uL (3.8-10.6)
[2024-08-03 06:50] LABS: ALT 17 U/L (4-34); AST 27 U/L (14-36); African American GFR (CKD) 79 (>60 ml/min/1.73 sqM); Albumin 3.4 g/dL (3.5-5.0); Alkaline Phosphatase 58 U/L (38-126); Anion Gap 8 mmol/L; Blood Urea Nitrogen 15 mg/dL (7-17); Calcium 8.1 mg/dL (8.4-10.2); Carbon Dioxide 17 mmol/L (22-30); Chloride 103 mmol/L (98-107); Glucose 84 mg/dL (74-99); Non-African American GFR(CKD) 69 (>60 ml/min/1.73 sqM); Potassium 4.2 mmol/L (3.5-5.1); Sodium 128 mmol/L (137-145); Total Bilirubin 0.6 mg/dL (0.2-1.3); Total Protein 5.7 g/dL (6.3-8.2)
[2024-08-03] MEDS: hydrALAZINE HCL 25 MG TAB PO SCH (07:47)
[2024-08-03] MEDS: MIDODRINE 5 MG TAB PO SCH (07:57)
[2024-08-03] MEDS: CHOLECALCIFEROL 25 MCG (1000 IU) TABLET PO SCH (09:44)
[2024-08-03] MEDS: CYANOCOBALAMIN 500 MCG TAB PO SCH (09:44)
[2024-08-03] MEDS: hydrALAZINE HCL 20 MG/ML 1 ML VIAL IVP PRN (16:33)
--- NOTE | 2024-08-04 03:44 | HP ---
HISTORY AND PHYSICAL HISTORY OF PRESENT ILLNESS: Antonia Handley was admitted with acute on chronic respiratory illness. cough and shortness of breath. Her sodium was low. She has improved today with better sodium. She feels a little bit better. She has acute on chronic shoulder pain. She takes all her medications. MEDICATIONS: 1. Eliquis for atrial fibrillation paroxysmal. 2. Decadron. 3. Apresoline. 4. Vitamin B12. 5. Vitamin D3. 6. Ipratropium bromide. 7. Albuterol. 8. . 9. Midodrine 5 mg before meals t.i.d. 10.Nitroglycerin sublingual. REVIEW OF SYSTEMS: A 14-point review of systems otherwise is negative except for near syncope, weakness, fatigue. PHYSICAL EXAMINATION: CARDIOVASCULAR: S1, S2. LUNGS: Decreased breath sounds x4. Scattered wheeze. GENERAL: She is thin, cachectic, and looks her stated age. HEMATOLOGY: Negative Homans. GI: Soft. PSYCH: Fair mood and affect. LABORATORY DATA: , sodium 125, potassium 3.8. EKG shows atrial fibrillation, RVR. No ischemic ST-T changes. fall, weakness, syncope, hyponatremia, dehydration. Prognosis guarded. IV antibiotics for tracheobronchitis and COPD. Rehydration. Sodium replacement. Prognosis guarded. Please see further orders. MMODL / IJN: [id number] /
[2024-08-04 06:53] LABS: Basophils % (A) 0 %; Eosinophils % (A) 0 %; HCT 37.3 % (34.0-46.0); HGB 11.6 gm/dL (11.4-16.0); Lymphocytes # (A) 0.2 k/uL (1.0-4.8); Lymphocytes % (A) 6 %; MCH 30.2 pg (25.0-35.0); MCV 97.5 fL (80.0-100.0); Monocytes # (A) 0.2 k/uL (0-1.0); Monocytes % (A) 6 %; Neutrophils # (A) 3.2 k/uL (1.3-7.7); Neutrophils % (A) 87 %; Platelet Count 178 k/uL (150-450); RBC 3.82 m/uL (3.80-5.40); RDW 13.5 % (11.5-15.5); WBC 3.7 k/uL (3.8-10.6)
[2024-08-04 07:45] LABS: ALT 17 U/L (4-34); AST 24 U/L (14-36); African American GFR (CKD) 64 (>60 ml/min/1.73 sqM); Albumin 3.4 g/dL (3.5-5.0); Alkaline Phosphatase 58 U/L (38-126); Anion Gap 7 mmol/L; Blood Urea Nitrogen 23 mg/dL (7-17); Calcium 8.5 mg/dL (8.4-10.2); Carbon Dioxide 22 mmol/L (22-30); Chloride 100 mmol/L (98-107); Glucose 123 mg/dL (74-99); Non-African American GFR(CKD) 56 (>60 ml/min/1.73 sqM); Potassium 4.2 mmol/L (3.5-5.1); Sodium 129 mmol/L (137-145); Total Bilirubin 0.6 mg/dL (0.2-1.3); Total Protein 5.7 g/dL (6.3-8.2)
[2024-08-04] MEDS: ACETAMINOPHEN TAB 325 MG TAB PO PRN (09:37)
--- NOTE | 2024-08-04 21:42 | P.PN ---
Subjective Progress Note Date: 08/04/24 This is a patient of Dr. Shawn England's and currently covering Patient is a pleasant 89-year-old female with a past medical history of atrial fibrillation, hypertension, possible underlying memory impairment or dementia recently admitted for weakness with syncope and dehydration and overall not feeling well. Patient did have significant hyponatremia and has not been eating well or feeling well. was recently sick and hospitalized and sent to [facility] with significant dementia that is progressing. Patient has been having cough with concerns of COPD with tracheobronchitis. Patient was started on antibiotics along with gentle hydration and is looking slightly improved. Sodium continues to be low although was 129 today. Infectious disease along with pulmonary were consulted with concerns of possible pneumonia or viral illness. Cepheid testing was ordered and pending as this was not done in the hospital emergency department. Patient is currently maintained on 2 L of oxygen via nasal cannula and she does not wear oxygen outpatient. Review of systems: Constitutional: reports of fatigue, no fever, or chills Cardiovascular: No reports of chest pain or palpitations Respiratory: reports of mild shortness of breath with occasional cough GI: No reports of nausea, no reports of vomiting, no diarrhea : No reports of dysuria or retention Neurovascular: reports of generalized weakness All medications have been reviewed Active Medications Acetaminophen (Acetaminophen Tab 325 Mg Tab) 650 mg PO Q6HR PRN PRN Reason: Mild Pain or Fever > 100.5 Last Admin: 08/04/24 09:37 Dose: 650 mg Albuterol Sulfate (Albuterol Hfa Inhaler) 2 puff INHALATION RT-QID ORIANA Apixaban (Apixaban 2.5 Mg Tablet) 2.5 mg PO BID ORIANA; Protocol Last Admin: 08/04/24 21:25 Dose: 2.5 mg Atenolol (Atenolol 25 Mg Tab) 25 mg PO BID [facility] Last Admin: 08/04/24 21:25 Dose: 25 mg Cholecalciferol (Cholecalciferol 25 Mcg (1000 Iu) Tablet) 50 mcg PO DAILY ORIANA Last Admin: 08/04/24 09:36 Dose: 50 mcg Cyanocobalamin (Cyanocobalamin 500 Mcg Tab) 1,000 mcg PO DAILY [facility] Last Admin: 08/04/24 09:36 Dose: 1,000 mcg Hydralazine HCl (Hydralazine Hcl 25 Mg Tab) 25 mg PO AC-TID [facility] Last Admin: 08/04/24 18:04 Dose: 25 mg Hydralazine HCl (Hydralazine Hcl 20 Mg/Ml 1 Ml Vial) 10 mg IVP Q6HR PRN PRN Reason: Blood Pressure - High Last Admin: 08/04/24 03:31 Dose: 10 mg Ceftriaxone Sodium 1 gm/ (Sodium Chloride) 50 mls @ 100 mls/hr IVPB Q24HR [facility]; Protocol Last Admin: 08/04/24 09:35 Dose: 100 mls/hr Methylprednisolone Sodium Succinate (Methylprednisolone Sod Succi 40 Mg/Ml 1 Ml Vial) 40 mg IV Q8HR [facility] Last Admin: 08/04/24 18:04 Dose: 40 mg Multivitamins/Minerals (Vit A,C & U-Roectk-Gjtqriiw 1 Each Tab) 1 each PO BID [facility] Last Admin: 08/04/24 21:27 Dose: 1 each Naloxone HCl (Naloxone 0.4 Mg/Ml 1 Ml Vial) 0.2 mg IV Q2M PRN PRN Reason: Opioid Reversal Ondansetron HCl (Ondansetron 4 Mg/2 Ml Vial) 4 mg IVP Q8HR PRN PRN Reason: Nausea And Vomiting Quetiapine Fumarate (Quetiapine 25 Mg Tab) 12.5 mg PO HS PRN PRN Reason: Agitation Tiotropium [place] (Tiotropium 2.5 Mcg Inhaler) 2 puff INHALATION RT-DAILY [facility] PHYSICAL EXAMINATION: GENERAL: The patient is alert and oriented x2-3, Well developed, elderly appearing, thin built HEENT: Pupils are round and equally reacting to light. EOMI. no scleral icterus. No conjunctival pallor. Normocephalic, atraumatic. No pharyngeal erythema. No thyromegaly. CARDIOVASCULAR: S1 and S2 muffled PULMONARY: diminished breath sounds bilaterally with no wheezing or rhonchi noted. ABDOMEN: soft. Nontender on exam. non-distended, normoactive bowel sounds. No palpable organomegaly. MUSCULOSKELETAL: No joint swelling or deformity. EXTREMITIES: No cyanosis, clubbing, or pedal edema. NEUROLOGICAL: Gross neurological examination did not reveal any focal deficits. Diffuse weakness SKIN: No rashes. Assessment: Hyponatremia secondary to poor solute intake Dehydration with generalized weakness, possibly secondary to COVID-19 infection Altered mental status, multifactorial metabolic encephalopathy with concerns of acute hospital-acquired delirium COVID-19 infection, testing was positive today 08/04/2024 Acute hypoxic respiratory failure, possibly secondary to COVID-19 Concerns of possible memory impairment History of atrial fibrillation History of hypertension Fall with generalized weakness GI prophylaxis DVT prophylaxis Full code Plan: Recommend to continue with current medications with infectious disease following. Cepheid testing was done and COVID was positive Wean FiO2 as tolerated as patient does not wear oxygen outpatient, currently maintained on 2 L Continue with inhalers and supplemental care Will use as needed Seroquel at night with concerns of possible hospital-acquired delirium Recommend monitoring blood pressure and will adjust medications accordingly Follow-up with repeat labs to monitor kidney functions and electrolytes Home medications reviewed and resumed as appropriate Encouraged increase activity as tolerated, PT/OT therapy evaluation Social work following and family's plan is for patient to return home on discharge Due to multiple complex medical issues, overall prognosis is guarded The impression and plan of care has been dictated by Monserrat Ceja, nurse practitioner as directed. Dr. Ericka MD I have performed a history and examination and MDM of this patient, discussed the same with the dictator, and agree with the dictator's assessment and plan as written ,documented as a scribe. Based on total visit time, I have performed more than 50% of the visit. Any additional findings or plans will be noted. Objective - Vital Signs Vital signs: Vital Signs Temp 97.5 F L 08/04/24 08:00 Pulse 72 08/04/24 08:38 Resp 16 08/04/24 08:00 BP 111/62 08/04/24 08:00 Pulse Ox 98 08/04/24 08:00 FiO2 Intake & Output 08/03/24 08/04/24 08/04/24 18:59 06:59 18:59 Intake Total 490 Output Total 200 Balance -200 490 Weight 49.442 kg 48.8 kg Intake: IV 10 Invasive Line 1 10 Oral 480 Output: Urine 200 Other: Voiding Method External Catheter # Voids 1 # Bowel Movements 1 - Labs CBC & Chem 7: 08/04/24 06:06 08/04/24 06:32 Labs: Abnormal Lab Results - Last 24 Hours (Table) 08/04/24 08/04/24 Range/Units 06:06 06:32 WBC 3.7 L (3.8-10.6) k/uL Lymphocytes # 0.2 L (1.0-4.8) k/uL Sodium 129 L (137-145) mmol/L BUN 23 H (7-17) mg/dL Glucose 123 H (74-99) mg/dL Total Protein 5.7 L (6.3-8.2) g/dL Albumin 3.4 L (3.5-5.0) g/dL
[2024-08-05] MEDS: QUEtiapine 25 MG TAB PO PRN (04:04)
[2024-08-05] MEDS: ALBUTEROL HFA INHALER INHALATION SCH (09:09)
[2024-08-05] MEDS: TIOTROPIUM 2.5 MCG INHALER INHALATION SCH (09:09)
--- NOTE | 2024-08-05 09:16 | P.CONS ---
History of Present Illness - Reason for Consult Consult date: 08/04/24 Bronchitis, viral syndrome Requesting physician: Shawn England - Chief Complaint Weakness and fall x 1 day - History of Present Illness Patient is a 89-year-old female with a past medical history significant for hypertension atrial fibrillation has been brought to the hospital for evaluation of patient becoming weak felt lightheaded and fainted patient did have a fall hit her head however denies any significant trauma the patient may have passed out momentarily as reported by the daughter at the bedside and apparently did fall on the right shoulder with associated pain to eat patient denies having any fever or any chills did have some URI symptoms and also have a cough mild in intensity without any sputum production no pleuritic chest pain no nausea vomiting no abdominal pain on the diarrhea patient on presentation to the hospital was afebrile and no fever have been recorded subsequently patient was not tachycardic hypotensive or hypoxic only 1 O2 sats of 94% documented in the patient is currently on 2 L nasal cannula oxygen patient did have a white count of 3.7 creatinine is normal sodium is slightly low electrolytes are normal liver enzymes normal urine has been positive ureterocele positive for opiates patient has been empirically started on Rocephin patient did have shoulder x-ray mild superolateral joint space narrowing no discrete fracture chest x-ray no jose consolidation or pleural effusion patient also have a CT of the chest no acute abnormality in the chest no focal consolidation to suggest pneumonia infectious disease was consulted concerning for viral syndrome by admitting team Review of Systems Positive point and negatives has been mentioned in the HPI, complete review of systems was performed and all other systems are negative Past Medical History Past Medical History: Atrial Fibrillation, Hypertension Additional Past Medical History / Comment(s): migraines, "leaking heart valves." History of Any Multi-Drug Resistant Organisms: None Reported Past Surgical History: Appendectomy, Bowel Resection, Cholecystectomy, Orthopedic Surgery Past Anesthesia/Blood Transfusion Reactions: No Reported Reaction Past Psychological History: No Psychological Hx Reported Smoking Status: Never smoker Past Alcohol Use History: Occasional Past Drug Use History: None Reported - Past Family History Father History Unknown: Yes Medications and Allergies Home Medications Medication Instructions Recorded Confirmed Type Vit C/E/Zn/Coppr/Lutein/Zeaxan 1 cap PO BID 12/07/18 08/02/24 History [Preservision Areds 2 Softgel] Aspirin 81 mg PO DAILY #30 chewable 12/08/18 08/02/24 Rx Cholecalciferol (Vitamin D3) 50 mcg PO DAILY 11/03/23 08/02/24 History [Vitamin D3 (50 Mcg = 2000 Iu)] Cyanocobalamin (Vitamin B-12) 1,000 mcg PO DAILY 11/03/23 08/02/24 History [Vitamin B-12] atenoloL 25 mg PO BID 11/03/23 08/02/24 History hydrALAZINE HCL [Apresoline] 25 mg PO AC-TID 11/03/23 08/02/24 History Ipratropium-Albuterol Nebulize 3 ml INHALATION RT-QID 30 Days 11/04/23 08/02/24 Rx [Duoneb 0.5 mg-3 mg/3 ml Soln] #120 each Midodrine [ProAmatine] 5 mg PO AC-TID tab 11/04/23 08/02/24 Rx Nitroglycerin Sl Tabs [Nitrostat] 0.4 mg SUBLINGUAL Q5M PRN tab 11/04/23 08/02/24 Rx Apixaban [Eliquis] 2.5 mg PO BID 08/02/24 08/02/24 History cefuroxime axetiL [Ceftin] 500 mg PO DIRECTED 08/02/24 08/02/24 History dexAMETHasone [Decadron] 4 mg PO DIRECTED 08/02/24 08/02/24 History Allergies Allergy/AdvReac Type Severity Reaction Status Date / Time codeine AdvReac Vomiting Verified 08/02/24 15:21 Physical Exam Vitals: Vital Signs Temp Pulse Pulse Resp BP BP Pulse Ox 08/04/24 08:38 72 08/04/24 08:27 72 08/04/24 08:00 97.5 F L 74 16 111/62 98 08/04/24 06:41 200/69 08/04/24 03:32 97.8 F 65 18 197/79 99 08/04/24 01:26 72 18 08/03/24 23:40 97.9 F 72 18 149/72 94 L 08/03/24 20:13 66 08/03/24 20:02 63 08/03/24 20:00 98.3 F 71 18 142/67 98 08/03/24 17:46 67 18 169/78 100 08/03/24 16:58 75 20 158/74 98 08/03/24 16:36 98.2 F 75 20 207/86 98 08/03/24 14:42 76 18 188/79 99 08/03/24 12:44 79 18 165/75 97 08/03/24 11:56 76 08/03/24 11:44 74 Intake and Output 08/03/24 08/04/24 08/04/24 22:59 06:59 14:59 Intake Total 490 Output Total 200 Balance -200 490 Intake: IV 10 Invasive Line 1 10 Oral 480 Output: Urine 200 Other: Voiding Method External Catheter External Catheter # Voids 1 # Bowel Movements 1 Weight 49.442 kg 48.8 kg GENERAL DESCRIPTION: Elderly female lying in bed, no distress. No tachypnea or accessory muscle of respiration use. HEENT: Shows Pallor , no scleral icterus. Oral mucous membrane is dry. NECK: Trachea central, no thyromegaly. LUNGS: Unlabored breathing. Decreased intensity breath sounds always HEART: S1, S2, regular rate and rhythm. ABDOMEN: Soft, no tenderness , EXTREMITIES: No edema of feet. SKIN: No rash, no masses palpable. NEUROLOGICAL: The patient is awake, alert, oriented x3, mood and affect normal. Results CBC & Chem 7: 08/04/24 06:06 08/04/24 06:32 Labs: Abnormal Lab Results - Last 24 Hours (Table) 08/04/24 08/04/24 Range/Units 06:06 06:32 WBC 3.7 L (3.8-10.6) k/uL Lymphocytes # 0.2 L (1.0-4.8) k/uL Sodium 129 L (137-145) mmol/L BUN 23 H (7-17) mg/dL Glucose 123 H (74-99) mg/dL Total Protein 5.7 L (6.3-8.2) g/dL Albumin 3.4 L (3.5-5.0) g/dL Assessment and Plan (1) COVID-19 Current Visit: Yes Status: Acute Code(s): U07.1 - COVID-19 SNOMED Code(s): 253237870 (2) Weakness Current Visit: Yes Status: Acute Code(s): R53.1 - WEAKNESS SNOMED Code(s): 51578074 Plan: 1patient presented to hospital with generalized weakness did have a fall and passed out currently being worked up by cardiology patient also have a cough and some URI symptoms concerning for possible bronchitis as chest x-ray as well as CT did not show any consolidation 2-patient also have a positive UA but very hard to get any urinary symptoms from this patient question of possible UTI await urine culture 3we will check influenza RSV and COVID testing to rule out etiology for her symptoms Family at the bedside multiple questions answered We will follow on clinical condition and cultures to further adjust medication if needed Thank you for this consultation we will follow the patient along with you Dictation was produced using [employer] dictation software. please excuse any grammatical, word or spelling errors.
[2024-08-05 10:31] LABS: African American GFR (CKD) 58 (>60 ml/min/1.73 sqM); Anion Gap 9 mmol/L; Blood Urea Nitrogen 32 mg/dL (7-17); Calcium 8.8 mg/dL (8.4-10.2); Carbon Dioxide 22 mmol/L (22-30); Chloride 98 mmol/L (98-107); Glucose 124 mg/dL (74-99); Non-African American GFR(CKD) 50 (>60 ml/min/1.73 sqM); Potassium 4.5 mmol/L (3.5-5.1); Sodium 129 mmol/L (137-145)
--- NOTE | 2024-08-05 13:54 | P.PN ---
Subjective Progress Note Date: 08/05/24 Principal diagnosis: Reason for follow-up is COVID-19 Patient is a 89-year-old female with a past medical history significant for hypertension atrial fibrillation has been brought to the hospital for evaluation of patient becoming weak felt lightheaded and fainted patient did have a fall hit her head, patient also have some respiratory symptoms concerning for possible viral syndrome CT of the chest was negative for pneumonia, the patient did tested positive for COVID-19. On today's evaluation that is 08/05/2024,the patient denies any fever or any chills, patient is breathing comfortably on room air, the patient slightly sleepy but arousable no vomiting or diarrhea has been reported. Patient did have a creatinine 1.0 no CBC was done today urine culture has been negative Objective - Vital Signs Vital signs: Vital Signs Temp 97.6 F 08/05/24 12:00 Pulse 79 08/05/24 12:00 Resp 16 08/05/24 12:00 BP 134/73 08/05/24 12:00 Pulse Ox 96 08/05/24 12:00 FiO2 Intake & Output 08/04/24 08/05/24 08/05/24 18:59 06:59 18:59 Intake Total 1200 20 680 Balance 1200 20 680 Intake: IV 20 20 20 Invasive Line 1 20 20 20 Oral 1180 660 Other: Voiding Method Toilet # Voids 3 1 - Exam GENERAL DESCRIPTION: An elderly female up in the chair in no distress RESPIRATORY SYSTEM: Unlabored breathing , decreased breath sounds at bases HEART: S1 S2 regular rate and rhythm , ABDOMEN: Soft , no tenderness EXTREMITIES: No edema feet - Labs CBC & Chem 7: 08/04/24 06:06 08/05/24 09:43 Labs: Abnormal Lab Results - Last 24 Hours (Table) 08/04/24 08/05/24 Range/Units 17:27 09:43 Sodium 129 L (137-145) mmol/L BUN 32 H (7-17) mg/dL Glucose 124 H (74-99) mg/dL SARS-CoV-2 (PCR) Detected A (Not Detectd) Microbiology - Last 24 Hours (Table) 08/04/24 00:21 Urine Culture - Final Urine,Clean Catch Assessment and Plan (1) COVID-19 Current Visit: Yes Status: Acute Code(s): U07.1 - COVID-19 SNOMED Code(s): 455012824 (2) Weakness Current Visit: Yes Status: Acute Code(s): R53.1 - WEAKNESS SNOMED Code(s): 05023944 Plan: 1patient presented to hospital with generalized weakness did have a fall and passed out currently being worked up by cardiology patient also have a cough and some URI symptoms concerning for possible bronchitis as chest x-ray as well as CT did not show any consolidation 2-patient also have a positive UA but very hard to get any urinary symptoms from this patient question of possible UTI, urine culture pending so far consider discontinuation of the Rocephin 3patient tested positive for COVID-19 CT chest was negative for pneumonia patient not requiring any supplemental oxygen treatment will be mostly supportive Dictation was produced using [employer] dictation software. please excuse any grammatical, word or spelling errors. Time with Patient: Less than 30
[2024-08-06 07:27] LABS: African American GFR (CKD) 61 (>60 ml/min/1.73 sqM); Anion Gap 4 mmol/L; Blood Urea Nitrogen 34 mg/dL (7-17); Calcium 8.8 mg/dL (8.4-10.2); Carbon Dioxide 27 mmol/L (22-30); Chloride 100 mmol/L (98-107); Glucose 132 mg/dL (74-99); Magnesium 2.5 mg/dL (1.6-2.3); Non-African American GFR(CKD) 53 (>60 ml/min/1.73 sqM); Potassium 4.6 mmol/L (3.5-5.1); Sodium 131 mmol/L (137-145)
--- NOTE | 2024-08-06 07:28 | P.PN ---
Subjective Progress Note Date: 08/05/24 This is a patient of Dr. Shawn England's and currently covering Patient is a pleasant 89-year-old female with a past medical history of atrial fibrillation, hypertension, possible underlying memory impairment or dementia recently admitted for weakness with syncope and dehydration and overall not feeling well. Patient did have significant hyponatremia and has not been eating well or feeling well. was recently sick and hospitalized and sent to [facility] with significant dementia that is progressing. Patient has been having cough with concerns of COPD with tracheobronchitis. Patient was started on antibiotics along with gentle hydration and is looking slightly improved. Sodium continues to be low although was 129 today. Infectious disease along with pulmonary were consulted with concerns of possible pneumonia or viral illness. Cepheid testing was ordered and pending as this was not done in the hospital emergency department. Patient is currently maintained on 2 L of oxygen via nasal cannula and she does not wear oxygen outpatient. 08/05/2024 Patient is seen in follow-up today continues to be about the same. Patient is currently maintained on room air and was tested positive for COVID. Patient with generalized weakness with family working on taking the patient home. Will follow-up with case management/social work once they return regarding discharge planning. Antibiotics have been discontinued and will continue supportive care. Review of systems: Constitutional: reports of fatigue, no fever, or chills Cardiovascular: No reports of chest pain or palpitations Respiratory: reports of mild shortness of breath with occasional cough GI: No reports of nausea, no reports of vomiting, no diarrhea : No reports of dysuria or retention Neurovascular: reports of generalized weakness All medications have been reviewed PHYSICAL EXAMINATION: GENERAL: The patient is alert and oriented x2-3, Well developed, elderly appearing, thin built HEENT: Pupils are round and equally reacting to light. EOMI. no scleral icterus. No conjunctival pallor. Normocephalic, atraumatic. No pharyngeal erythema. No thyromegaly. CARDIOVASCULAR: S1 and S2 muffled PULMONARY: diminished breath sounds bilaterally with no wheezing or rhonchi noted. ABDOMEN: soft. Nontender on exam. non-distended, normoactive bowel sounds. No palpable organomegaly. MUSCULOSKELETAL: No joint swelling or deformity. EXTREMITIES: No cyanosis, clubbing, or pedal edema. NEUROLOGICAL: Gross neurological examination did not reveal any focal deficits. Diffuse weakness SKIN: No rashes. Assessment: Hyponatremia secondary to poor solute intake Dehydration with generalized weakness, possibly secondary to COVID-19 infection Altered mental status, multifactorial metabolic encephalopathy with concerns of acute hospital-acquired delirium COVID-19 infection, testing was positive 08/04/2024 Acute hypoxic respiratory failure, possibly secondary to COVID-19 Concerns of possible memory impairment History of atrial fibrillation History of hypertension Fall with generalized weakness GI prophylaxis DVT prophylaxis Full code Plan: Recommend to continue with current medications with infectious disease following. Cepheid testing was done and COVID was positive Wean FiO2 as tolerated as patient does not wear oxygen outpatient, currently room air with intermittent use of 2 L although oxygen saturations have been above 95%. Continue with inhalers and supplemental care Will use as needed Seroquel at night with concerns of possible hospital-acquired delirium Recommend monitoring blood pressure and will adjust medications accordingly Follow-up with repeat labs to monitor kidney functions and electrolytes Home medications reviewed and resumed as appropriate Encouraged increase activity as tolerated, PT/OT therapy evaluation Social work following and family's plan is for patient to return home on discharge Due to multiple complex medical issues, overall prognosis is guarded The impression and plan of care has been dictated by Monserrat Ceja, nurse practitioner as directed. Dr. Ericka MD I have performed a history and examination and MDM of this patient, discussed the same with the dictator, and agree with the dictator's assessment and plan as written ,documented as a scribe. Based on total visit time, I have performed more than 50% of the visit. Any additional findings or plans will be noted. Objective - Vital Signs Vital signs: Vital Signs Temp 97.9 F 08/06/24 04:00 Pulse 64 08/06/24 04:00 Resp 16 08/06/24 04:00 BP 158/72 08/06/24 04:00 Pulse Ox 96 08/06/24 04:00 FiO2 Intake & Output 08/05/24 08/06/24 08/06/24 18:59 06:59 18:59 Intake Total 1580 20 Balance 1580 20 Weight 50 kg Intake: IV 20 20 Invasive Line 1 20 20 Oral 1560 Other: Voiding Method Toilet # Voids 3 0 - Labs CBC & Chem 7: 08/04/24 06:06 08/05/24 09:43 Labs: Abnormal Lab Results - Last 24 Hours (Table) 08/05/24 Range/Units 09:43 Sodium 129 L (137-145) mmol/L BUN 32 H (7-17) mg/dL Glucose 124 H (74-99) mg/dL Microbiology - Last 24 Hours (Table) 08/04/24 00:21 Urine Culture - Final Urine,Clean Catch
[2024-08-06 07:32] LABS: Basophils % (A) 0 %; Eosinophils % (A) 0 %; HCT 34.4 % (34.0-46.0); HGB 11.2 gm/dL (11.4-16.0); Lymphocytes # (A) 0.2 k/uL (1.0-4.8); Lymphocytes % (A) 5 %; MCH 31.1 pg (25.0-35.0); MCHC 32.6 g/dL (31.0-37.0); MCV 95.4 fL (80.0-100.0); Mean Platelet Volume 7.9; Monocytes # (A) 0.2 k/uL (0-1.0); Monocytes % (A) 4 %; Neutrophils # (A) 3.5 k/uL (1.3-7.7); Neutrophils % (A) 90 %; Platelet Count 165 k/uL (150-450); RDW 13.9 % (11.5-15.5); WBC 3.9 k/uL (3.8-10.6)
[2024-08-06] MEDS: methylPREDNISolone SOD SUCCI 40 MG/ML 1 ML VIAL IV SCH (10:50)
[2024-08-06] MEDS: ZINC SULFATE 220 MG CAP PO SCH (10:50)
--- NOTE | 2024-08-06 15:00 | P.PN ---
Subjective Progress Note Date: 08/06/24 Principal diagnosis: Reason for follow-up is COVID-19 Patient is a 89-year-old female with a past medical history significant for hypertension atrial fibrillation has been brought to the hospital for evaluation of patient becoming weak felt lightheaded and fainted patient did have a fall hit her head, patient also have some respiratory symptoms concerning for possible viral syndrome CT of the chest was negative for pneumonia, the patient did tested positive for COVID-19. On today's evaluation that is 08/06/2024,the patient remains to be afebrile, patient is on room air not requiring supplemental oxygen and denies any shortness of breath no chest pain did have occasional dry cough.Patient denies having any nausea or vomiting, no abdominal pain and no diarrhea has been reported. Patient white count is 3.8, creatinine 0.96 Objective - Vital Signs Vital signs: Vital Signs Temp 97.9 F 08/06/24 14:52 Pulse 61 08/06/24 14:52 Resp 16 08/06/24 14:52 BP 158/68 08/06/24 14:52 Pulse Ox 98 08/06/24 14:52 FiO2 Intake & Output 08/05/24 08/06/24 08/06/24 18:59 06:59 18:59 Intake Total 1580 20 20 Balance 1580 20 20 Weight 50 kg Intake: IV 20 20 20 Invasive Line 1 20 20 20 Oral 1560 Other: Voiding Method Toilet # Voids 3 0 2 - Exam GENERAL DESCRIPTION: An elderly female up in the chair in no distress RESPIRATORY SYSTEM: Unlabored breathing , decreased breath sounds at bases HEART: S1 S2 regular rate and rhythm , ABDOMEN: Soft , no tenderness EXTREMITIES: No edema feet - Labs CBC & Chem 7: 08/06/24 06:55 08/06/24 06:55 Labs: Abnormal Lab Results - Last 24 Hours (Table) 08/06/24 08/06/24 Range/Units 06:55 06:55 RBC 3.60 L (3.80-5.40) m/uL Hgb 11.2 L (11.4-16.0) gm/dL Lymphocytes # 0.2 L (1.0-4.8) k/uL Sodium 131 L (137-145) mmol/L BUN 34 H (7-17) mg/dL Glucose 132 H (74-99) mg/dL Magnesium 2.5 H (1.6-2.3) mg/dL Assessment and Plan (1) COVID-19 Current Visit: Yes Status: Acute Code(s): U07.1 - COVID-19 SNOMED Code(s): 734335680 (2) Weakness Current Visit: Yes Status: Acute Code(s): R53.1 - WEAKNESS SNOMED Code(s): 34450595 Plan: 1patient presented to hospital with generalized weakness did have a fall and passed out currently being worked up by cardiology patient also have a cough and some URI symptoms concerning for possible bronchitis as chest x-ray as well as CT did not show any consolidation 2-patient also have a positive UA but very hard to get any urinary symptoms from this patient question of possible UTI, urine culture negative Rocephin discontinued 3patient tested positive for COVID-19 CT chest was negative for pneumonia patient not requiring any supplemental oxygen patient current current supportive treatment and will monitor clinical course closely Dictation was produced using [employer] dictation software. please excuse any gramm atical, word or spelling errors. Time with Patient: Less than 30
--- NOTE | 2024-08-07 08:16 | P.PN ---
Subjective Progress Note Date: 08/06/24 This is a patient of Dr. Shawn England's and currently covering Patient is a pleasant 89-year-old female with a past medical history of atrial fibrillation, hypertension, possible underlying memory impairment or dementia recently admitted for weakness with syncope and dehydration and overall not feeling well. Patient did have significant hyponatremia and has not been eating well or feeling well. was recently sick and hospitalized and sent to [facility] with significant dementia that is progressing. Patient has been having cough with concerns of COPD with tracheobronchitis. Patient was started on antibiotics along with gentle hydration and is looking slightly improved. Sodium continues to be low although was 129 today. Infectious disease along with pulmonary were consulted with concerns of possible pneumonia or viral illness. Cepheid testing was ordered and pending as this was not done in the hospital emergency department. Patient is currently maintained on 2 L of oxygen via nasal cannula and she does not wear oxygen outpatient. 08/05/2024 Patient is seen in follow-up today continues to be about the same. Patient is currently maintained on room air and was tested positive for COVID. Patient with generalized weakness with family working on taking the patient home. Will follow-up with case management/social work once they return regarding discharge planning. Antibiotics have been discontinued and will continue supportive care. 08/06/2024 Patient is seen in follow-up today and continues to be with generalized weakness being followed by infectious disease. Antibiotics have been discontinued and patient is continue with supplemental support for acute COVID-19 infection. Sodium is improving at 131 and patient is tolerating diet. Blood pressures are continuing to be elevated will adjust hydralazine and monitor closely. Awaiting PT/OT therapy notes and further discussion with family and case management regarding discharge planning. Review of systems: Constitutional: reports of fatigue, no fever, or chills Cardiovascular: No reports of chest pain or palpitations Respiratory: reports of mild shortness of breath with occasional cough GI: No reports of nausea, no reports of vomiting, no diarrhea : No reports of dysuria or retention Neurovascular: reports of generalized weakness All medications have been reviewed PHYSICAL EXAMINATION: GENERAL: The patient is alert and oriented x2-3, Well developed, elderly appearing, thin built HEENT: Pupils are round and equally reacting to light. EOMI. no scleral icterus. No conjunctival pallor. Normocephalic, atraumatic. No pharyngeal erythema. No thyromegaly. CARDIOVASCULAR: S1 and S2 muffled PULMONARY: diminished breath sounds bilaterally with no wheezing or rhonchi noted. ABDOMEN: soft. Nontender on exam. non-distended, normoactive bowel sounds. No palpable organomegaly. MUSCULOSKELETAL: No joint swelling or deformity. EXTREMITIES: No cyanosis, clubbing, or pedal edema. NEUROLOGICAL: Gross neurological examination did not reveal any focal deficits. Diffuse weakness SKIN: No rashes. Assessment: Hyponatremia secondary to poor solute intake, improving Dehydration with generalized weakness, likely secondary to COVID-19 infection Altered mental status, multifactorial metabolic encephalopathy with concerns of acute hospital-acquired delirium COVID-19 infection, testing was positive 08/04/2024 Acute hypoxic respiratory failure, possibly secondary to COVID-19 Concerns of possible memory impairment History of atrial fibrillation History of hypertension Fall with generalized weakness GI prophylaxis DVT prophylaxis Full code Plan: Recommend to continue with current medications with infectious disease following. Cepheid testing was done and COVID was positive Patient has been weaned off oxygen and tolerating room air Continue with inhalers and supplemental care Will use as needed Seroquel at night with concerns of possible hospital-acquired delirium Recommend monitoring blood pressure and will adjust medications accordingly. Adjust hydralazine and will add 50 3 times daily from 25 3 times daily previously Sodium is improving and kidney functions are within normal limits Home medications reviewed and resumed as appropriate Encouraged increase activity as tolerated, PT/OT therapy evaluation. Await reevaluation and discuss further with case management/social work and family regarding discharge planning. Family would like to take the patient home on discharge Due to multiple complex medical issues, overall prognosis is guarded The impression and plan of care has been dictated by Monserrat Ceja, nurse practitioner as directed. Dr. Ericka MD I have performed a history and examination and MDM of this patient, discussed the same with the dictator, and agree with the dictator's assessment and plan as written ,documented as a scribe. Based on total visit time, I have performed more than 50% of the visit. Any additional findings or plans will be noted. Objective - Vital Signs Vital signs: Vital Signs Temp 97.9 F 08/06/24 04:00 Pulse 64 08/06/24 04:00 Resp 16 08/06/24 08:00 BP 158/72 08/06/24 04:00 Pulse Ox 96 08/06/24 04:00 FiO2 Intake & Output 08/05/24 08/06/24 08/06/24 18:59 06:59 18:59 Intake Total 1580 20 20 Balance 1580 20 20 Weight 50 kg Intake: IV 20 20 20 Invasive Line 1 20 20 20 Oral 1560 Other: Voiding Method Toilet # Voids 3 0 - Labs CBC & Chem 7: 08/06/24 06:55 08/06/24 06:55 Labs: Abnormal Lab Results - Last 24 Hours (Table) 08/06/24 08/06/24 Range/Units 06:55 06:55 RBC 3.60 L (3.80-5.40) m/uL Hgb 11.2 L (11.4-16.0) gm/dL Lymphocytes # 0.2 L (1.0-4.8) k/uL Sodium 131 L (137-145) mmol/L BUN 34 H (7-17) mg/dL Glucose 132 H (74-99) mg/dL Magnesium 2.5 H (1.6-2.3) mg/dL Microbiology - Last 24 Hours (Table) 08/04/24 00:21 Urine Culture - Final Urine,Clean Catch
[2024-08-07] MEDS: ZINC OXIDE PASTE (Z-GUARD) 1 APPLIC TOPICAL SCH (11:13)
[2024-08-07] MEDS: hydrALAZINE HCL 50 MG TAB PO SCH (11:52)
--- NOTE | 2024-08-07 13:43 | P.PN ---
Subjective Progress Note Date: 08/07/24 Patient is a pleasant 89-year-old female with a past medical history of atrial fibrillation, hypertension, possible underlying memory impairment or dementia recently admitted for weakness with syncope and dehydration and overall not feeling well. Patient did have significant hyponatremia and has not been eating well or feeling well. was recently sick and hospitalized and sent to [facility] with significant dementia that is progressing. Patient has been having cough with concerns of COPD with tracheobronchitis. Patient was started on antibiotics along with gentle hydration and is looking slightly improved. Sodium continues to be low although was 129 today. Infectious disease along with pulmonary were consulted with concerns of possible pneumonia or viral illness. Cepheid testing was ordered and pending as this was not done in the hospital emergency department. Patient is currently maintained on 2 L of oxygen via nasal cannula and she does not wear oxygen outpatient. 08/05/2024 Patient is seen in follow-up today continues to be about the same. Patient is currently maintained on room air and was tested positive for COVID. Patient with generalized weakness with family working on taking the patient home. Will follow-up with case management/social work once they return regarding discharge planning. Antibiotics have been discontinued and will continue supportive care. 08/06/2024 Patient is seen in follow-up today and continues to be with generalized weakness being followed by infectious disease. Antibiotics have been discontinued and patient is continue with supplemental support for acute COVID-19 infection. Sodium is improving at 131 and patient is tolerating diet. Blood pressures are continuing to be elevated will adjust hydralazine and monitor closely. Awaiting PT/OT therapy notes and further discussion with family and case management regarding discharge planning. 08/07. Patient seen and examined. Sitting upright in the chair. Stated she feels better. Still complain lethargic. REVIEW OF SYSTEMS: CONSTITUTIONAL: No fever, no malaise,. CARDIOVASCULAR: No chest pain, no palpitations, no syncope. PULMONARY: No shortness of breath, no cough, GASTROINTESTINAL: No diarrhea, no nausea, no vomiting, no abdominal pain. NEUROLOGICAL: No headaches, no weakness, PHYSICAL EXAMINATION: GENERAL: The patient is alert and oriented x3, not in any acute distress. Well developed, well nourished. HEENT: Pupils are round and equally reacting to light. EOMI. No scleral icterus. No conjunctival pallor. Normocephalic, atraumatic. No pharyngeal erythema. No thyromegaly. CARDIOVASCULAR: S1 and S2 present. No murmurs, rubs, or gallops. PULMONARY: Chest is clear to auscultation, no wheezing or crackles. ABDOMEN: Soft, nontender, nondistended, normoactive bowel sounds. No palpable organomegaly. MUSCULOSKELETAL: No joint swelling or deformity. EXTREMITIES: No cyanosis, clubbing, or pedal edema. NEUROLOGICAL: Gross neurological examination did not reveal any focal deficits. SKIN: No rashes. Assessment and plan Hyponatremia secondary to poor solute intake, improving Dehydration with generalized weakness, likely secondary to COVID-19 infection Altered mental status, multifactorial metabolic encephalopathy with concerns of acute hospital-acquired delirium COVID-19 infection, testing was positive 08/04/2024 Acute hypoxic respiratory failure, possibly secondary to COVID-19 Concerns of possible memory impairment History of atrial fibrillation History of hypertension Fall with generalized weakness Monitor vital signs Monitor CBC Monitor CMP Aggressive bronchopulmonary hygiene Continue with breathing treatments Continue Eliquis Continue cyanocobalamin Continue IV Solu-Medrol ID following PT and OT following Labs and medication were reviewed.. Continue same treatment. Continue with symptomatic treatment. Resume home medication. Monitor labs and vitals. DVT and GI prophylaxis. Further recommendations as per clinical course of the patient Dictation was produced using [employer] dictation software. please excuse any g rammatical, word or spelling errors. Objective - Vital Signs Vital signs: Vital Signs Temp 97.8 F 08/07/24 04:00 Pulse 69 08/07/24 08:36 Resp 16 08/07/24 08:36 BP 111/55 08/07/24 08:36 Pulse Ox 94 L 08/07/24 08:36 FiO2 Intake & Output 08/06/24 08/07/24 08/07/24 18:59 06:59 18:59 Intake Total 260 20 190 Balance 260 20 190 Weight 80.4 kg Intake: IV 20 20 10 Invasive Line 1 20 20 10 Oral 240 180 Other: Voiding Method Toilet Toilet # Voids 1 2 1 - Labs CBC & Chem 7: 08/06/24 06:55 08/06/24 06:55
--- NOTE | 2024-08-07 15:16 | P.PN ---
Subjective Progress Note Date: 08/07/24 Principal diagnosis: Reason for follow-up is COVID-19 Patient is a 89-year-old female with a past medical history significant for hypertension atrial fibrillation has been brought to the hospital for evaluation of patient becoming weak felt lightheaded and fainted patient did have a fall hit her head, patient also have some respiratory symptoms concerning for possible viral syndrome CT of the chest was negative for pneumonia, the patient did tested positive for COVID-19. On today's evaluation that is 08/07/2024, the patient continues to be afebrile, the patient is on room air and breathing comfortably, the Pt denies having any chest pain or any significant cough, the patient denies having any abdominal pain no vomiting or any diarrhea has been reported by the nursing staff. Patient white count is 3.9 creatinine 0.96 as of yesterday no labs were drawn today urine culture have been negative Objective - Vital Signs Vital signs: Vital Signs Temp 97.8 F 08/07/24 04:00 Pulse 71 08/07/24 11:34 Resp 16 08/07/24 11:34 BP 193/89 08/07/24 11:34 Pulse Ox 95 08/07/24 11:34 FiO2 Intake & Output 08/06/24 08/07/24 08/07/24 18:59 06:59 18:59 Intake Total 260 20 370 Balance 260 20 370 Weight 80.4 kg Intake: IV 20 20 10 Invasive Line 1 20 20 10 Oral 240 360 Other: Voiding Method Toilet Toilet # Voids 1 2 1 - Exam GENERAL DESCRIPTION: An elderly female up in the chair in no distress RESPIRATORY SYSTEM: Unlabored breathing , decreased breath sounds at bases HEART: S1 S2 regular rate and rhythm , ABDOMEN: Soft , no tenderness EXTREMITIES: No edema feet - Labs CBC & Chem 7: 08/06/24 06:55 08/06/24 06:55 Assessment and Plan (1) COVID-19 Current Visit: Yes Status: Acute Code(s): U07.1 - COVID-19 SNOMED Code(s): 749732658 (2) Weakness Current Visit: Yes Status: Acute Code(s): R53.1 - WEAKNESS SNOMED Code(s): 18850799 Plan: 1patient presented to hospital with generalized weakness did have a fall and passed out currently being worked up by cardiology patient also have a cough and some URI symptoms concerning for possible bronchitis as chest x-ray as well as CT did not show any consolidation 2-patient also have a positive UA but very hard to get any urinary symptoms from this patient question of possible UTI, urine culture negative Rocephin discontinued 3patient tested positive for COVID-19 CT chest was negative for pneumonia patient not requiring any supplemental oxygen 4patient did have some clinic appointment and will continue with current supportive treatment and will monitor clinical course closely Dictation was produced using [employer] dictation software. please excuse any grammatical, word or spelling errors. Time with Patient: Less than 30
[2024-08-08] MEDS: atenoloL 25 MG TAB PO ONE (13:44)
--- NOTE | 2024-08-08 13:46 | P.PN ---
Subjective Progress Note Date: 08/08/24 Principal diagnosis: Reason for follow-up is COVID-19 Patient is a 89-year-old female with a past medical history significant for hypertension atrial fibrillation has been brought to the hospital for evaluation of patient becoming weak felt lightheaded and fainted patient did have a fall hit her head, patient also have some respiratory symptoms concerning for possible viral syndrome CT of the chest was negative for pneumonia, the patient did tested positive for COVID-19. On today's evaluation that is 08/08/2024, Patient is afebrile patient is currently on room air and denies having any shortness of breath, the patient denies any chest pain did have occasional cough but no worsening, the patient denies any nausea vomiting did not have any abdominal pain and no diarrhea, mention feeling better. No new lab has been obtained today Objective - Vital Signs Vital signs: Vital Signs Temp 98.2 F 08/08/24 07:17 Pulse 70 08/08/24 07:17 Resp 14 08/08/24 07:17 BP 167/72 08/08/24 07:17 Pulse Ox 97 08/08/24 07:17 FiO2 Intake & Output 08/07/24 08/08/24 08/08/24 18:59 06:59 18:59 Intake Total 498 240 Balance 498 240 Weight 80 kg Intake: IV 20 Invasive Line 1 20 Oral 478 240 Other: Voiding Method Toilet Toilet # Voids 1 1 - Exam GENERAL DESCRIPTION: An elderly female up in the chair in no distress RESPIRATORY SYSTEM: Unlabored breathing , decreased breath sounds at bases HEART: S1 S2 regular rate and rhythm , ABDOMEN: Soft , no tenderness EXTREMITIES: No edema feet - Labs CBC & Chem 7: 08/06/24 06:55 08/06/24 06:55 Assessment and Plan (1) COVID-19 Current Visit: Yes Status: Acute Code(s): U07.1 - COVID-19 SNOMED Code(s): 200944559 (2) Weakness Current Visit: Yes Status: Acute Code(s): R53.1 - WEAKNESS SNOMED Code(s): 76183709 Plan: 1patient presented to hospital with generalized weakness did have a fall and passed out currently being worked up by cardiology patient also have a cough and some URI symptoms concerning for possible bronchitis as chest x-ray as well as CT did not show any consolidation 2-patient also have a positive UA but very hard to get any urinary symptoms from this patient question of possible UTI, urine culture negative Rocephin discontinued 3patient tested positive for COVID-19 CT chest was negative for pneumonia patient not requiring any supplemental oxygen 4patient is slowly clinically improving and will continue with current supportive treatment and will monitor clinical course closely Dictation was produced using [employer] dictation software. please excuse any grammatical, word or spelling errors. Time with Patient: Less than 30
[2024-08-08] MEDS: atenoloL 50 MG TAB PO SCH (20:45)
--- NOTE | 2024-08-09 08:34 | PN ---
PROGRESS NOTE SUBJECTIVE: An 89-year-old white female with COVID-19 pneumonia, syncope, weakness, encephalopathy. OBJECTIVE: CARDIOVASCULAR: S1, S2. LUNGS: Transmitted upper airway sounds. PSYCH: Fair mood and affect. Sleepy, lethargic, limited mobility due to COVID-19 . ASSESSMENT: Encephalopathy with generalized weakness. Continue to treat for secondary infections. Prognosis guarded. PT, OT. Check orthostatic changes. Home soon. MMODL / IJN: [id number] /
[2024-08-09] MEDS ORDERED: ACETAMINOPHEN TAB 325 MG TAB PO PRN (11:44)
[2024-08-09] MEDS: LACTULOSE 20 GM/30 ML CUP PO PRN (14:30)
[2024-08-09 14:58] VITALS: BMI 31.2
[2024-08-09] MEDS ORDERED: LACTULOSE 20 GM/30 ML CUP PO SCH (16:00)
--- NOTE | 2024-08-09 19:47 | P.CNPUL ---
History of Present Illness Consult date: 08/09/24 Reason for consult: dyspnea Chief complaint: Dizziness lightheadedness on admission History of present illness: Patient is a 89-year-old female with a past medical history significant for hypertension atrial fibrillation has been brought to the hospital on August 04, 2024 for evaluation of patient becoming weak felt lightheaded and fainted patient did have a fall hit her head however denies any significant trauma the patient may have passed out momentarily as reported by the daughter. Patient apparently did fall on the right shoulder with associated pain to eat patient denies having any fever or any chills did have some URI symptoms and also have a cough mild in intensity without any sputum production no pleuritic chest pain no nausea vomiting no abdominal pain on the diarrhea patient on presentation to the hospital was afebrile and no fever have been recorded subsequently patient was not tachycardic hypotensive or hypoxic, her O2 sats of 94% documented in the patient is currently on room air, however has been on supplemental oxygen now off of it with oxygen saturation remains in mid to high 90s, patient did have a white count of 3.7 creatinine is normal sodium is slightly low electrolytes are normal liver enzymes normal urine has been positive for opiates patient has been empirically started on Rocephin patient did have shoulder x-ray mild superolateral joint space narrowing no discrete fracture chest x-ray no jose consolidation or pleural effusion patient also have a CT of the chest no acute abnormality in the chest no focal consolidation to suggest pneumonia infectious disease was consulted concerning for viral syndrome by admitting team. Urine culture have been negative. Patient has been on bronchodilator, direct acting oral anticoagulants, inhaled corticosteroids, antihypertensive agent, methylprednisolone IV being monitor off of antibiotics. Patient does have a history of snoring, will evaluate for sleep disordered breathing and sleep apnea as outpatient. Patient however has been diagnosed as COVID infection on arrival, influenza A as well as influenza B and RSV were negative Review of Systems All systems: negative Past Medical History Past Medical History: Atrial Fibrillation, Hypertension Additional Past Medical History / Comment(s): migraines, "leaking heart valves." History of Any Multi-Drug Resistant Organisms: None Reported Past Surgical History: Appendectomy, Bowel Resection, Cholecystectomy, Orthopedic Surgery Past Anesthesia/Blood Transfusion Reactions: No Reported Reaction Past Psychological History: No Psychological Hx Reported Smoking Status: Never smoker Past Alcohol Use History: Occasional Past Drug Use History: None Reported - Past Family History Father History Unknown: Yes Medications and Allergies Home Medications Medication Instructions Recorded Confirmed Type Vit C/E/Zn/Coppr/Lutein/Zeaxan 1 cap PO BID 12/07/18 08/02/24 History [Preservision Areds 2 Softgel] Aspirin 81 mg PO DAILY #30 chewable 12/08/18 08/02/24 Rx Cholecalciferol (Vitamin D3) 50 mcg PO DAILY 11/03/23 08/02/24 History [Vitamin D3 (50 Mcg = 2000 Iu)] Cyanocobalamin (Vitamin B-12) 1,000 mcg PO DAILY 11/03/23 08/02/24 History [Vitamin B-12] atenoloL 25 mg PO BID 11/03/23 08/02/24 History hydrALAZINE HCL [Apresoline] 25 mg PO AC-TID 11/03/23 08/02/24 History Ipratropium-Albuterol Nebulize 3 ml INHALATION RT-QID 30 Days 11/04/23 08/02/24 Rx [Duoneb 0.5 mg-3 mg/3 ml Soln] #120 each Midodrine [ProAmatine] 5 mg PO AC-TID tab 11/04/23 08/02/24 Rx Nitroglycerin Sl Tabs [Nitrostat] 0.4 mg SUBLINGUAL Q5M PRN tab 11/04/23 08/02/24 Rx Apixaban [Eliquis] 2.5 mg PO BID 08/02/24 08/02/24 History cefuroxime axetiL [Ceftin] 500 mg PO DIRECTED 08/02/24 08/02/24 History dexAMETHasone [Decadron] 4 mg PO DIRECTED 08/02/24 08/02/24 History Allergies Allergy/AdvReac Type Severity Reaction Status Date / Time codeine AdvReac Vomiting Verified 08/02/24 15:21 Physical Exam Vitals: Vital Signs Temp Pulse Resp BP BP Pulse Ox 08/09/24 14:23 97.9 F 63 18 92/50 95 08/09/24 07:23 97.6 F 57 L 18 112/52 96 08/09/24 05:59 124/67 08/09/24 02:00 97 F L 65 14 118/56 95 08/08/24 21:07 97.7 F 72 16 120/66 96 Intake and Output 08/09/24 08/09/24 08/09/24 06:59 14:59 22:59 Output Total 2 Balance -2 Output: Urine 2 Other: Voiding Method Toilet # Voids 2 Weight 80 kg - Constitutional General appearance: average body habitus, disheveled - EENT Eyes: EOMI, PERRLA Ears: bilateral: normal - Neck Carotids: bilateral: upstroke normal Thyroid: bilateral: normal size - Respiratory Respiratory: bilateral: CTA - Cardiovascular Rhythm: regular Heart sounds: normal: S1, S2 - Gastrointestinal General gastrointestinal: normal bowel sounds, soft - Integumentary Integumentary: normal turgor - Neurologic Neurologic: CNII-XII intact - Musculoskeletal Musculoskeletal: gait normal, generalized weakness, strength equal bilaterally - Psychiatric Psychiatric: A&O x's 3, appropriate affect, intact judgment & insight Results - Laboratory Findings CBC and BMP: 08/06/24 06:55 08/06/24 06:55 PT/INR, D-dimer PT 11.1 sec (10.0-12.5) 08/02/24 11:51 INR 1.0 (<1.2) 08/02/24 11:51 Abnormal lab findings: Abnormal Labs 08/02/24 08/02/24 08/02/24 11:51 11:51 11:51 WBC RBC 3.79 L Hgb Plt Count Lymphocytes # 0.2 L APTT 31.4 H Sodium Chloride Carbon Dioxide BUN Glucose Calcium Magnesium Total Protein Albumin Urine Ketones 1+ H Ur Leukocyte Esterase Large H Urine RBC 6 H Urine WBC 15 H Ur Squamous Epith Cells 5 H Urine Bacteria Rare H Urine Opiates Screen Detected H SARS-CoV-2 (PCR) 08/02/24 08/03/24 08/03/24 11:51 00:43 00:43 WBC 2.7 L RBC 3.59 L Hgb Plt Count 149 L Lymphocytes # 0.2 L APTT Sodium 125 L 128 L Chloride 95 L Carbon Dioxide 21 L 17 L BUN Glucose Calcium 8.2 L 8.1 L Magnesium Total Protein 6.1 L 5.7 L Albumin 3.4 L Urine Ketones Ur Leukocyte Esterase Urine RBC Urine WBC Ur Squamous Epith Cells Urine Bacteria Urine Opiates Screen SARS-CoV-2 (PCR) 08/04/24 08/04/24 08/04/24 06:06 06:32 17:27 WBC 3.7 L RBC Hgb Plt Count Lymphocytes # 0.2 L APTT Sodium 129 L Chloride Carbon Dioxide BUN 23 H Glucose 123 H Calcium Magnesium Total Protein 5.7 L Albumin 3.4 L Urine Ketones Ur Leukocyte Esterase Urine RBC Urine WBC Ur Squamous Epith Cells Urine Bacteria Urine Opiates Screen SARS-CoV-2 (PCR) Detected A 08/05/24 08/06/24 08/06/24 09:43 06:55 06:55 WBC RBC 3.60 L Hgb 11.2 L Plt Count Lymphocytes # 0.2 L APTT Sodium 129 L 131 L Chloride Carbon Dioxide BUN 32 H 34 H Glucose 124 H 132 H Calcium Magnesium 2.5 H Total Protein Albumin Urine Ketones Ur Leukocyte Esterase Urine RBC Urine WBC Ur Squamous Epith Cells Urine Bacteria Urine Opiates Screen SARS-CoV-2 (PCR) - Diagnostic Findings Chest x-ray: report reviewed, image reviewed CT scan - chest: report reviewed, image reviewed Assessment and Plan Assessment: Constitutional symptom of dizziness lightheadedness and near syncope likely due to a viral syndrome of COVID-19 infection COVID-19 infection Sleep disordered breathing and sleep apnea Hypertension hypertensive cardiovascular disease Chronic atrial fibrillation Electrolyte imbalance with hyponatremia, likely hypovolemic Prerenal azotemia, intravascular volume depletion dehydration Plan: Will taper down the steroid to once daily Continue bronchodilators Continue gentle rehydration encourage patient to take p.o. Increase activity as tolerated Sleep study as outpatient Further recommendations pending plan of care as per clinical response with the patient Time with Patient: Greater than 30
[2024-08-09] MEDS: SYMBICORT 160-4.5 MCG INHALER INHALATION SCH (20:07)
[2024-08-10] MEDS: MIDODRINE 5 MG TAB PO SCH (07:15)
[2024-08-10] MEDS: dexAMETHasone 2 MG TAB PO SCH (07:27)
--- NOTE | 2024-08-10 09:03 | P.PN ---
Subjective Progress Note Date: 08/09/24 Principal diagnosis: Reason for follow-up is COVID-19 Patient is a 89-year-old female with a past medical history significant for hypertension atrial fibrillation has been brought to the hospital for evaluation of patient becoming weak felt lightheaded and fainted patient did have a fall hit her head, patient also have some respiratory symptoms concerning for possible viral syndrome CT of the chest was negative for pneumonia, the patient did tested positive for COVID-19. On today's evaluation that is 08/09/2024, patient has been afebrile, patient is breathing comfortably and is currently on room air, patient denies having any significant cough no chest pain, patient denies nausea vomiting or diarrhea and no abdominal pain. No new lab has been obtained today Objective - Vital Signs Vital signs: Vital Signs Temp 97.6 F 08/09/24 07:23 Pulse 57 L 08/09/24 07:23 Resp 18 08/09/24 07:23 BP 112/52 08/09/24 07:23 Pulse Ox 96 08/09/24 07:23 FiO2 Intake & Output 08/08/24 08/09/24 08/09/24 18:59 06:59 18:59 Output Total 2 Balance -2 Output: Urine 2 Other: Voiding Method Toilet # Voids 4 1 - Exam GENERAL DESCRIPTION: An elderly female up in the chair in no distress RESPIRATORY SYSTEM: Unlabored breathing , decreased breath sounds at bases HEART: S1 S2 regular rate and rhythm , ABDOMEN: Soft , no tenderness EXTREMITIES: No edema feet - Labs CBC & Chem 7: 08/06/24 06:55 08/06/24 06:55 Assessment and Plan (1) COVID-19 Current Visit: Yes Status: Acute Code(s): U07.1 - COVID-19 SNOMED Code(s): 058111568 (2) Weakness Current Visit: Yes Status: Acute Code(s): R53.1 - WEAKNESS SNOMED Code(s): 54373175 Plan: 1patient presented to hospital with generalized weakness did have a fall and passed out currently being worked up by cardiology patient also have a cough and some URI symptoms concerning for possible bronchitis as chest x-ray as well as CT did not show any consolidation 2-patient also have a positive UA but very hard to get any urinary symptoms from this patient question of possible UTI, urine culture negative Rocephin discontinued 3patient tested positive for COVID-19 CT chest was negative for pneumonia patient not requiring any supplemental oxygen 4patient did have slow clinical improvement and will be treated supportive treatment and will monitor clinical course closely Dictation was produced using [employer] dictation software. please excuse any grammatical, word or spelling errors. Time with Patient: Less than 30
--- NOTE | 2024-08-10 09:34 | PN ---
PROGRESS NOTE An 89-year-old white female with syncope, weakness, positive COVID, dizziness, low blood pressure 90s/80s, we are going to give her fluid boluses. Increase her diet. Check orthostatic hypotension, remained on Symbicort and Spiriva inhalers. She has been given Eliquis for atrial fibrillation, Tenormin for hypertension, vitamin D and B. She is lightheaded and dizziness with ambulation. We will check her orthostatic changes. Temperature 97.7, blood pressure drops from 140s/60s to 95/53, standing up. We definitely have to give her back her midodrine and keep her on this for long-term at this point, cardiovascular instability, status post COVID. Prognosis is guarded. Ambulate as tolerated with PT/OT. will be given outpatient. MALORIE / NUPUR: [id number] /
--- NOTE | 2024-08-10 10:21 | P.PN ---
Subjective Progress Note Date: 08/10/24 Principal diagnosis: Constitutional symptom of dizziness lightheadedness and near syncope likely due to a viral syndrome of COVID-19 infection as well as intravascular volume deplet ion dehydration COVID-19 infection Sleep disordered breathing and sleep apnea Hypertension hypertensive cardiovascular disease Chronic atrial fibrillation Electrolyte imbalance with hyponatremia, likely hypovolemic Prerenal azotemia, intravascular volume depletion dehydration August 10, 2024, patient seen evaluate examined during rounds labs reviewed medications reviewed care plan discussed. Patient remains afebrile, hemodynamic status stable, oxygen saturation is 99% on room air, labs not done today, patient denies any chest pain intermittent dry cough is present. Patient remains on bronchodilator with Ventolin as needed along with Symbicort 2 times a day as well antihypertensive agent patient has been on midodrine as well and being continued on quetiapine and hyperimmune supplements, care plan discussed with the daughter and her at bedside at length Patient is a 89-year-old female with a past medical history significant for hypertension atrial fibrillation has been brought to the hospital on August 04, 2024 for evaluation of patient becoming weak felt lightheaded and fainted patient did have a fall hit her head however denies any significant trauma the patient may have passed out momentarily as reported by the daughter. Patient apparently did fall on the right shoulder with associated pain to eat patient denies having any fever or any chills did have some URI symptoms and also have a cough mild in intensity without any sputum production no pleuritic chest pain no nausea vomiting no abdominal pain on the diarrhea patient on presentation to the hospital was afebrile and no fever have been recorded subsequently patient was not tachycardic hypotensive or hypoxic, her O2 sats of 94% documented in the patient is currently on room air, however has been on supplemental oxygen now off of it with oxygen saturation remains in mid to high 90s, patient did have a white count of 3.7 creatinine is normal sodium is slightly low electrolytes are normal liver enzymes normal urine has been positive for opiates patient has been empirically started on Rocephin patient did have shoulder x-ray mild superolateral joint space narrowing no discrete fracture chest x-ray no jose consolidation or pleural effusion patient also have a CT of the chest no acute abnormality in the chest no focal consolidation to suggest pneumonia infectious disease was consulted concerning for viral syndrome by admitting team. Urine culture have been negative. Patient has been on bronchodilator, direct acting oral anticoagulants, inhaled corticosteroids, antihypertensive agent, methylprednisolone IV being monitor off of antibiotics. Patient does have a history of snoring, will evaluate for sleep disordered breathing and sleep apnea as outpatient. Patient however has been diagnosed as COVID infection on arrival, influenza A as well as influenza B and RSV were n egative Objective - Vital Signs Vital signs: Vital Signs Temp 98.4 F 08/10/24 09:11 Pulse 68 08/10/24 09:11 Resp 18 08/10/24 07:01 BP 129/71 08/10/24 09:11 Pulse Ox 99 08/10/24 09:11 FiO2 Intake & Output 08/09/24 08/10/24 08/10/24 18:59 06:59 18:59 Weight 80 kg Other: Voiding Method Toilet # Voids 2 1 - Exam - Constitutional General appearance: average body habitus, disheveled - EENT Eyes: EOMI, PERRLA Ears: bilateral: normal - Neck Carotids: bilateral: upstroke normal Thyroid: bilateral: normal size - Respiratory Respiratory: bilateral: CTA - Cardiovascular Rhythm: regular Heart sounds: normal: S1, S2 - Gastrointestinal General gastrointestinal: normal bowel sounds, soft - Integumentary Integumentary: normal turgor - Neurologic Neurologic: CNII-XII intact - Musculoskeletal Musculoskeletal: gait normal, generalized weakness, strength equal bilaterally - Psychiatric Psychiatric: A&O x's 3, appropriate affect, intact judgment & insight - Labs CBC & Chem 7: 08/06/24 06:55 08/06/24 06:55 Assessment and Plan Assessment: Constitutional symptom of dizziness lightheadedness and near syncope likely due to a viral syndrome of COVID-19 infection as well as intravascular volume deple tion dehydration COVID-19 infection Sleep disordered breathing and sleep apnea Hypertension hypertensive cardiovascular disease Chronic atrial fibrillation Electrolyte imbalance with hyponatremia, likely hypovolemic Prerenal azotemia, intravascular volume depletion dehydration Plan: Continue overall 6 mg Decadron once daily to finish total of 10-day steroid therapy Continue bronchodilators Continue gentle rehydration encourage patient to take p.o. Increase activity as tolerated Sleep study as outpatient Further recommendations pending plan of care as per clinical response with the patient Time with Patient: Greater than 30
--- NOTE | 2024-08-10 13:57 | P.PN ---
Subjective Progress Note Date: 08/10/24 Principal diagnosis: Reason for follow-up is COVID-19 Patient is a 89-year-old female with a past medical history significant for hypertension atrial fibrillation has been brought to the hospital for evaluation of patient becoming weak felt lightheaded and fainted patient did have a fall hit her head, patient also have some respiratory symptoms concerning for possible viral syndrome CT of the chest was negative for pneumonia, the patient did tested positive for COVID-19. On today's evaluation that is 08/10/2024, Patient is afebrile this morning patient denies having any chest pain shortness of breath she has been complaining of some cough and mention some sputum production no nausea vomiting no abdominal pain no diarrhea.. No new lab has been repeated today Objective - Vital Signs Vital signs: Vital Signs Temp 98.4 F 08/10/24 09:11 Pulse 68 08/10/24 09:11 Resp 18 08/10/24 07:01 BP 129/71 08/10/24 09:11 Pulse Ox 99 08/10/24 09:11 FiO2 Intake & Output 08/09/24 08/10/24 08/10/24 18:59 06:59 18:59 Weight 80 kg Other: Voiding Method Toilet # Voids 2 1 - Exam GENERAL DESCRIPTION: An elderly female up in the chair in no distress RESPIRATORY SYSTEM: Unlabored breathing , decreased breath sounds at bases HEART: S1 S2 regular rate and rhythm , ABDOMEN: Soft , no tenderness EXTREMITIES: No edema feet - Labs CBC & Chem 7: 08/06/24 06:55 08/06/24 06:55 Assessment and Plan (1) COVID-19 Current Visit: Yes Status: Acute Code(s): U07.1 - COVID-19 SNOMED Code(s): 535415351 (2) Weakness Current Visit: Yes Status: Acute Code(s): R53.1 - WEAKNESS SNOMED Code(s): 58640884 Plan: 1patient presented to hospital with generalized weakness did have a fall and passed out currently being worked up by cardiology patient also have a cough and some URI symptoms concerning for possible bronchitis as chest x-ray as well as CT did not show any consolidation 2-patient also have a positive UA but very hard to get any urinary symptoms from this patient question of possible UTI, urine culture negative Rocephin discontinued 3patient tested positive for COVID-19 CT chest was negative for pneumonia patient not requiring any supplemental oxygen 4patient now complaining of cough with some purulent sputum will repeat a chest x-ray get a sputum culture repeated blood work including a procalcitonin level Dictation was produced using [employer] dictation software. please excuse any grammatical, word or spelling errors. Time with Patient: Less than 30
--- NOTE | 2024-08-10 14:09 | CDI ---
Documentation Clarification Form Date: 08/10/2024 01:54:15 PM From: Michelle Fraser RN CCDS Phone: [phone] Admit Date: 08/02/2024 02:56:00 PM Patient Name: Antonia Handley Visit Number: [id number] Discharge Date: ATTENTION: The Clinical Documentation Specialists (CDI) and [facility] Coding Staff appreciate your assistance in clarifying documentation. Please respond to the clarification below the line at the bottom and electronically sign. The CDI & [facility] Coding staff will review the response and follow-up if needed. Please note: Queries are made part of the Legal Health Record. If you have any questions, please contact the author of this message via ITS. Doctor: Shawn England COVID 19 is documented 08/04, Medicine note. For each diagnosis, documentation must be clear to determine if the condition was present at the time of the patients inpatient admission or developed during the hospital stay. Additional clarification regarding the COVID 19 is requested. History/Risk Factors: 89 year old female presents to the ED after becoming weak, felt lightheaded and fainted, the patient fell hit her head. She has shoulder pain and upper respiratory symptoms and cough without sputum. Medical History: Atrial Fibrillation and HTN. 08/04, ID consult. Clinical Indicators: CXR, 08/02: COPD and borderline heart size. No definite acute process. LABS, 08/04: SARS-CoV-2 (PCR) Detected A Medicine note, 08/04: Hyponatremia secondary to poor solute intake Dehydration with generalized weakness, possibly secondary to COVID-19 infection COVID-19 infection, testing was positive today 08/04/2024 Treatment: 08/09 Symbicort Inhalation BID ORIANA; 08/03 Vitamin D3 PO Daily; 08/02 08/09 Solumedrol IV Q8H; 08/05 Spiriva Respimat Inhalation Daily; 08/05 Ventolin Hfa Inhaler QID; 08/02; - 08/04 Duoneb Inhalatoin QID ORIANA; 08/10 Hexadrol PO Daily; Definition of Present on Admission (POA): A diagnosis present at the time the order for admission to inpatient status was written. Please clarify if the COVID 19 was POA [ ] Y = Yes, the condition was present at the time of the order for inpatient admission. [ ] N = No, the condition was not present at the time of the order for inpatient admission. [ ] W = Clinically undetermined if the condition was present at the time of the order for inpatient admission. (Template Last Revised: November 2020) MTDD
[2024-08-10 15:01] LABS: Basophils % (A) 0 %; Eosinophils % (A) 0 %; HCT 35.6 % (34.0-46.0); HGB 11.5 gm/dL (11.4-16.0); Lymphocytes # (A) 0.3 k/uL (1.0-4.8); Lymphocytes % (A) 5 %; MCH 31.2 pg (25.0-35.0); MCHC 32.4 g/dL (31.0-37.0); MCV 96.4 fL (80.0-100.0); Mean Platelet Volume 7.2; Monocytes # (A) 0.3 k/uL (0-1.0); Monocytes % (A) 4 %; Neutrophils # (A) 6.8 k/uL (1.3-7.7); Neutrophils % (A) 91 %; Platelet Count 261 k/uL (150-450); RBC 3.69 m/uL (3.80-5.40); RDW 13.4 % (11.5-15.5); WBC 7.5 k/uL (3.8-10.6)
--- NOTE | 2024-08-10 15:16 | XR ---
EXAMINATION TYPE: XR chest 1V portable DATE OF EXAM: 08/10/2024 3:02 PM COMPARISON: 08/02/2024 CLINICAL INDICATION: Female, 89 years old with history of Cough/pneumonia, , FINDINGS: Heart upper limits of normal in size. Atherosclerotic arch calcifications. Hyperinflation. There is f ocal patchy medial right basilar opacity increased from prior. No other consolidation or pleural effu lauren is seen. Narrowing of the subacromial space on both sides may reflect chronic full-thickness rot ator cuff tears. IMPRESSION: Borderline heart size and COPD. New patchy medial right basilar atelectasis versus infiltrate. [facility], , 08/10/2024 3:14 PM
[2024-08-10 15:34] LABS: African American GFR (CKD) 61 (>60 ml/min/1.73 sqM); Anion Gap 3 mmol/L; Blood Urea Nitrogen 31 mg/dL (7-17); C Reactive Protein <0.5 mg/dL (<1.0); Calcium 8.2 mg/dL (8.4-10.2); Carbon Dioxide 26 mmol/L (22-30); Chloride 97 mmol/L (98-107); Glucose 119 mg/dL (74-99); Non-African American GFR(CKD) 53 (>60 ml/min/1.73 sqM); Potassium 4.5 mmol/L (3.5-5.1); Sodium 126 mmol/L (137-145)
--- NOTE | 2024-08-11 09:41 | CDI ---
Documentation Clarification Form Date: 08/10/2024 01:54:00 PM From: Michelle Fraser Phone: [phone] Admit Date: 08/02/2024 02:56:00 PM Patient Name: Antonia Handley Visit Number: [id number] Discharge Date: ATTENTION: The Clinical Documentation Specialists (CDI) and [facility] Coding Staff appreciate your assistance in clarifying documentation. Please respond to the clarification below the line at the bottom and electronically sign. The CDI & [facility] Coding staff will review the response and follow-up if needed. Please note: Queries are made part of the Legal Health Record. If you have any questions, please contact the author of this message via ITS. Doctor/Provider: Shawn England COVID 19 is documented 08/04, Medicine note. For each diagnosis, documentation must be clear to determine if the condition was present at the time of the patients inpatient admission or developed during the hospital stay. Additional clarification regarding the COVID 19 is requested. History/Risk Factors: 89 year old female presents to the ED after becoming weak, felt lightheaded and fainted, the patient fell hit her head. She has shoulder pain and upper respiratory symptoms and cough without sputum. Medical History: Atrial Fibrillation and HTN. 08/04, ID consult. Clinical Indicators: CXR, 08/02: COPD and borderline heart size. No definite acute process. LABS, 08/04: SARS-CoV-2 (PCR) Detected A Medicine note, 08/04: Hyponatremia secondary to poor solute intake Dehydration with generalized weakness, possibly secondary to COVID-19 infection COVID-19 infection, testing was positive today 08/04/2024 Treatment: 08/09 Symbicort Inhalation BID ORIANA; 08/03 Vitamin D3 PO Daily; 08/02 08/09 Solumedrol IV Q8H; 08/05 Spiriva Respimat Inhalation Daily; 08/05 Ventolin Hfa Inhaler QID; 08/02; - 08/04 Duoneb Inhalatoin QID ORIANA; 08/10 Hexadrol PO Daily; Definition of Present on Admission (POA): A diagnosis present at the time the order for admission to inpatient status was written. Please clarify if the COVID 19 was POA [ ] Y = Yes, the condition was present at the time of the order for inpatient admission. [ ] N = No, the condition was not present at the time of the order for inpatient admission. [ ] W = Clinically undetermined if the condition was present at the time of the order for inpatient admission. MTDD
[2024-08-11] MEDS: SODIUM CHLORIDE 0.9% 1,000 ML IV SCH (15:21)
--- NOTE | 2024-08-11 17:22 | P.PN ---
Subjective Progress Note Date: 08/11/24 Principal diagnosis: Constitutional symptom of dizziness lightheadedness and near syncope likely due to a viral syndrome of COVID-19 infection as well as intravascular volume deplet ion dehydration COVID-19 infection Sleep disordered breathing and sleep apnea Hypertension hypertensive cardiovascular disease Chronic atrial fibrillation Electrolyte imbalance with hyponatremia, likely hypovolemic Prerenal azotemia, intravascular volume depletion dehydration August 11, 2024, patient seen eval examined during rounds labs reviewed medications reviewed care plan discussed, patient remains on room air oxygen saturation 96% with stable hemodynamics, patient remains afebrile. Chest x-ray performed yesterday reviewed patchy right basilar atelectasis seen, CBC fairly within normal limit, sodium however 126 potassium 4.5 BUN/creatinine is 31/0.96, inflammatory markers including C-reactive protein and procalcitonin fairly within normal limits indicating very low likelihood of pneumonia likely atelectasis seen on x-ray, patient recommended to do deep breathing exercise in centive spirometer August 10, 2024, patient seen evaluate examined during rounds labs reviewed me dications reviewed care plan discussed. Patient remains afebrile, hemodynamic status stable, oxygen saturation is 99% on room air, labs not done today, patient denies any chest pain intermittent dry cough is present. Patient remains on bronchodilator with Ventolin as needed along with Symbicort 2 times a day as well antihypertensive agent patient has been on midodrine as well and being continued on quetiapine and hyperimmune supplements, care plan discussed with the daughter and her at bedside at length. Patient is a 89-year-old female with a past medical history signifi cant for hypertension atrial fibrillation has been brought to the hospital on August 04, 2024 for evaluation of patient becoming weak felt lightheaded and fainted patient did have a fall hit her head however denies any significant trauma the patient may have passed out momentarily as reported by the daughter. Patient apparently did fall on the right shoulder with associated pain to eat patient denies having any fever or any chills did have some URI symptoms and also have a cough mild in intensity without any sputum production no pleuritic chest pain no nausea vomiting no abdominal pain on the diarrhea patient on presentation to the hospital was afebrile and no fever have been recorded sub sequently patient was not tachycardic hypotensive or hypoxic, her O2 sats of 94% documented in the patient is currently on room air, however has been on supplemental oxygen now off of it with oxygen saturation remains in mid to high 90s, patient did have a white count of 3.7 creatinine is normal sodium is slightly low electrolytes are normal liver enzymes normal urine has been positive for opiates patient has been empirically started on Rocephin patient did have shoulder x-ray mild superolateral joint space narrowing no discrete fracture chest x-ray no jose consolidation or pleural effusion patient also have a CT of the chest no acute abnormality in the chest no focal consolidation to suggest pneumonia infectious disease was consulted concerning for viral syndrome by admitting team. Urine culture have been negative. Patient has been on bronchodilator, direct acting oral anticoagulants, inhaled corticosteroids, antihypertensive agent, methylprednisolone IV being monitor off of antibiotics. Patient does have a history of snoring, will evaluate for sleep disordered breathing and sleep apnea as outpatient. Patient however has been diagnosed as COVID infection on arrival, influenza A as well as influenza B and RSV were negative Objective - Vital Signs Vital signs: Vital Signs Temp 97.5 F L 08/11/24 13:56 Pulse 75 08/11/24 13:56 Resp 17 08/11/24 13:56 BP 122/61 08/11/24 13:56 Pulse Ox 96 08/11/24 13:56 FiO2 Intake & Output 08/10/24 08/11/24 08/11/24 18:59 06:59 18:59 Other: Voiding Method Toilet # Voids 2 3 - Exam - Constitutional General appearance: average body habitus, disheveled - EENT Eyes: EOMI, PERRLA Ears: bilateral: normal - Neck Carotids: bilateral: upstroke normal Thyroid: bilateral: normal size - Respiratory Respiratory: bilateral: CTA - Cardiovascular Rhythm: regular Heart sounds: normal: S1, S2 - Gastrointestinal General gastrointestinal: normal bowel sounds, soft - Integumentary Integumentary: normal turgor - Neurologic Neurologic: CNII-XII intact - Musculoskeletal Musculoskeletal: gait normal, generalized weakness, strength equal bilaterally - Psychiatric Psychiatric: A&O x's 3, appropriate affect, intact judgment & insight - Labs CBC & Chem 7: 08/10/24 14:36 08/10/24 14:36 Assessment and Plan Assessment: Right lower lobe subsegmental atelectasis Constitutional symptom of dizziness lightheadedness and near syncope likely due to a viral syndrome of COVID-19 infection as well as intravascular volume depletion dehydration COVID-19 infection Sleep disordered breathing and sleep apnea Hypertension hypertensive cardiovascular disease Chronic atrial fibrillation Electrolyte imbalance with hyponatremia, likely hypovolemic Prerenal azotemia, intravascular volume depletion dehydration Plan: Continue deep breathing exercises incentive spirometry Continue overall 6 mg Decadron once daily to finish total of 10-day steroid therapy Continue bronchodilators Continue gentle rehydration encourage patient to take p.o. Increase activity as tolerated Sleep study as outpatient Further recommendations pending plan of care as per clinical response with the patient Time with Patient: Greater than 30
--- NOTE | 2024-08-11 23:55 | PN ---
PROGRESS NOTE SUBJECTIVE: An 89-year-old white female with syncope, weakness, COVID-19 extremely weak to rule out orthostatic hypotension. She was orthostatic yesterday and systolic dropped to 40 points. PHYSICAL EXAMINATION: VITAL SIGNS: Temperature 98.3, pulse 67, respiratory rate 14 to 16, blood pressure 129/53, orthostatic hypotension, 96 on room air. GENERAL: She is extremely weak, poor oral intake. CARDIOVASCULAR: S1, S2. LUNGS: Scattered wheeze and rhonchi. NEUROLOGIC: Cranial nerves intact. PSYCHIATRIC: Fair mood and affect. ASSESSMENT: 1. COVID-19 pneumonia. 2. Acute hypoxic respiratory distress. 3. orthostatic hypotension. PROGNOSIS: Guarded. Continue current treatments. Discharge to rehab center with is tomorrow. MALORIE / MARYN: [id number] /
[2024-08-12 07:18] VITALS: BP 153/67; PULSE 60; RESP 16; TEMP 97.7
--- NOTE | 2024-08-12 08:34 | PN ---
PROGRESS NOTE COVID-19 present on admission. MMODL / IJN: [id number] /
--- NOTE | 2024-08-12 08:58 | P.PN ---
Subjective Progress Note Date: 08/11/24 Principal diagnosis: Reason for follow-up is COVID-19 Patient is a 89-year-old female with a past medical history significant for hypertension atrial fibrillation has been brought to the hospital for evaluation of patient becoming weak felt lightheaded and fainted patient did have a fall hit her head, patient also have some respiratory symptoms concerning for possible viral syndrome CT of the chest was negative for pneumonia, the patient did tested positive for COVID-19. On today's evaluation that is 08/11/2024,the patient denies any fever or any chills, patient is breathing comfortably on room air, the patient denies chest pain shortness of breath did have mild cough with green sputum, patient denies abdominal pain, no nausea vomiting or diarrhea. Patient did not have a lab draw today her white count 7.5 yesterday procalcitonin was 0.05 Objective - Vital Signs Vital signs: Vital Signs Temp 97.5 F L 08/11/24 07:25 Pulse 61 08/11/24 07:25 Resp 16 08/11/24 08:00 BP 123/52 08/11/24 07:25 Pulse Ox 97 08/11/24 09:25 FiO2 Intake & Output 08/10/24 08/11/24 08/11/24 18:59 06:59 18:59 Other: Voiding Method Toilet # Voids 2 3 - Exam GENERAL DESCRIPTION: An elderly female up in the chair in no distress RESPIRATORY SYSTEM: Unlabored breathing , decreased breath sounds at bases HEART: S1 S2 regular rate and rhythm , ABDOMEN: Soft , no tenderness EXTREMITIES: No edema feet - Labs CBC & Chem 7: 08/10/24 14:36 08/10/24 14:36 Labs: Abnormal Lab Results - Last 24 Hours (Table) 08/10/24 08/10/24 Range/Units 14:36 14:36 RBC 3.69 L (3.80-5.40) m/uL Lymphocytes # 0.3 L (1.0-4.8) k/uL Sodium 126 L (137-145) mmol/L Chloride 97 L (98-107) mmol/L BUN 31 H (7-17) mg/dL Glucose 119 H (74-99) mg/dL Calcium 8.2 L (8.4-10.2) mg/dL Assessment and Plan (1) COVID-19 Current Visit: Yes Status: Acute Code(s): U07.1 - COVID-19 SNOMED Code(s): 620890740 (2) Weakness Current Visit: Yes Status: Acute Code(s): R53.1 - WEAKNESS SNOMED Code(s): 70178806 Plan: 1patient presented to hospital with generalized weakness did have a fall and passed out currently being worked up by cardiology patient also have a cough and some URI symptoms concerning for possible bronchitis as chest x-ray as well as CT did not show any consolidation 2-patient also have a positive UA but very hard to get any urinary symptoms from this patient question of possible UTI, urine culture negative Rocephin discontinued 3patient tested positive for COVID-19 CT chest was negative for pneumonia patient not requiring any supplemental oxygen 4patient was complaining of cough with some purulent sputum, repeat a chest x- ray did show some infiltrate possible atelectasis at the patient did have a normal CRP and procalcitonin that we will go against any bacterial pneumonia and the patient will be monitored closely off antibiotic therapy Family at the bedside updated about her care Dictation was produced using [employer] dictation software. please excuse any grammatical, word or spelling errors. Time with Patient: Less than 30
--- NOTE | 2024-08-12 12:49 | PN ---
PROGRESS NOTE Status post COVID. Extremely weak and fatigued. She is going to go up and live with her up at the [facility]. PHYSICAL EXAMINATION: VITAL SIGNS: Temperature 97.5, pulse 61, blood pressure 123/52, O2 of 97 on room air. CARDIOVASCULAR: S1, S2. LUNGS: Transmitted upper airway sounds. White count 7.5, hemoglobin 11.5. Sodium is low at 126. She has hyponatremia and dehydration. We have to give her more IV fluids and monitor her electrolytes and her blood pressure for another day prior to going to the [facility]. Please see further orders. She has severe weakness and fatigue status post COVID-19. She will continue on her inhalers every day. PT/OT. Orthostatic hypotension will have to be checked. She is back on her midodrine. Go to rehab up with [facility] where her is. MALORIE / MARYN: [id number] /
== END 2024-08-12 11:23 | disposition home or self-care (01) | DRG 177 ==
LOC: EC 11:35 → 3SCARD 14:56 → 4SSUR 08-08 06:10
PROVIDERS: ADMIT Family Medicine; ATTEND Family Medicine
DX: U07.1 COVID-19 (principal); G93.41 Metabolic encephalopathy; J96.01 Acute respiratory failure with hypoxia; E87.1 Hypo-osmolality and hyponatremia; I48.0 Paroxysmal atrial fibrillation; I11.9 Hypertensive heart disease without heart failure; E86.1 Hypovolemia; E86.0 Dehydration; G89.29 Other chronic pain; M25.511 Pain in right shoulder; G47.30 Sleep apnea, unspecified; R41.3 Other amnesia; I95.1 Orthostatic hypotension; W19.XXXA Unspecified fall, initial encounter; Z79.01 Long term (current) use of anticoagulants; Z79.82 Long term (current) use of aspirin; Z79.899 Other long term (current) drug therapy
CPT/HCPCS: 36415; 70450; 71045; 71250; 72125; 72170; 80048; 80053; 80306; 80320; 81001; 83735; 84145; 85025; 85610; 85730; 86140; 86850; 86900; 86901; 87070; 87086; 87205; 87636; 90471; 90715; 93005; 94640; 94760; 96361; 96365; 96366; 96375; 96376; 99285